=== PATIENT | male | born 1970 | race Caucasian/White ===

== ENCOUNTER 2016-11-21 11:19 | Inpatient (IN) | payer MEDICARE, OTHER ==
--- NOTE | 2016-11-21 11:42 | ED ---
Lower Extremity Injury HPI - General Chief Complaint: Extremity Injury, Lower Stated Complaint: Right foot pain Time Seen by Provider: 11/21/16 11:25 Source: patient, EMS, RN notes reviewed Mode of arrival: EMS Limitations: no limitations - History of Present Illness Initial Comments: This a 46-year-old male presents emergency Department with chief complaint of right foot and leg pain. Patient states that he is not exactly sure how he injured as he has no short-term memory. He believes he injured one week ago a tripped over something in his apartment. Patient has noticed some bruising to his lower leg and severe ankle, foot pain. Patient states she also noticed some blisters to his knee per believes is from. Patient denies any headache, dizziness, chest pain, shortness breath, nausea vomiting. Patient denies any upper extremity injuries. - Related Data Home Medications Medication Instructions Recorded Confirmed Citalopram Hydrobromide 40 mg PO DAILY 11/21/16 11/21/16 Multivitamins, Thera [Multivitamin 1 tab PO DAILY 11/21/16 11/21/16 (formulary)] Previous Rx's Medication Instructions Recorded Divalproex ER [Depakote ER] 1,500 mg PO HS 15 Days 02/06/15 Allergies Allergy/AdvReac Type Severity Reaction Status Date / Time No Known Allergies Allergy Verified 11/21/16 12:09 Review of Systems ROS Statement: Those systems with pertinent positive or pertinent negative responses have been documented in the HPI. ROS Other: All systems not noted in ROS Statement are negative. Past Medical History Past Medical History: Dementia, GERD/Reflux, Memory Impairment Additional Past Medical History / Comment(s): has past history of anemia. History of Any Multi-Drug Resistant Organisms: None Reported Past Surgical History: No Surgical Hx Reported Past Anesthesia/Blood Transfusion Reactions: No Reported Reaction Past Psychological History: ADD/ADHD, Anxiety, Bipolar, Depression Smoking Status: Light tobacco smoker Past Alcohol Use History: Occasional Past Drug Use History: None Reported General Exam Limitations: no limitations General appearance: alert, in no apparent distress Head exam: Present: atraumatic, normocephalic, normal inspection Neck exam: Present: normal inspection, full ROM. Absent: tenderness, meningismus, lymphadenopathy Respiratory exam: Present: normal lung sounds bilaterally. Absent: respiratory distress, wheezes, rales, rhonchi, stridor Cardiovascular Exam: Present: regular rate, normal rhythm, normal heart sounds. Absent: systolic murmur, diastolic murmur, rubs, gallop, clicks Extremities exam: Present: other (Right lower extremity there is ecchymosis noted proximal to the ankle and of the ankle itself there is moderate swelling with severe tenderness diffusely there is some proximal tib-fib tenderness and some foot tenderness noted. Patient's pedal pulses are equal bilaterally.) Back exam: Present: full ROM. Absent: tenderness Neurological exam: Present: alert Skin exam: Present: warm, dry, intact, normal color. Absent: rash Course Vital Signs 11/21/16 11:25 Temperature 98.5 F Pulse Rate 101 H Respiratory 16 Rate Blood Pressure 119/75 O2 Sat by Pulse 94 L Oximetry Medical Decision Making - Medical Decision Making Case discussed with Cr jackson patient be admitted at this time under Dr. Saleh for surgery tomorrow. Patient will need medical clearance. Disposition Clinical Impression: Tibia/fibula fracture Disposition: ADMITTED IP TO THIS [facility] Condition: Stable Referrals: Nonstaff,Physician [REFERRING] - 1-2 days
--- NOTE | 2016-11-21 12:33 | XR ---
EXAMINATION TYPE: XR tibia fibula 2 views RT, XR foot limited 2 views RT DATE OF EXAM: 11/21/2016 11:58 AM COMPARISON: NONE HISTORY: 46-year-old male with pain and swelling after fall yesterday FINDINGS: Right tibia/fibula: There is an oblique fracture of the distal tibial shaft with lateral displacement of half a shaft wid th, slight posterior displacement, and mild lateral apex angulation. Additional mildly displaced obli que fracture at the fibular neck. Foot: There is a large plantar calcaneal spur. No additional acute fracture seen on these 2 views. IMPRESSION: 1. Right tibia/fibula: Oblique fracture distal tibial shaft displaced by half a shaft's width. Additi onal mildly displaced oblique fracture of the fibular neck. 2. Foot: Large plantar calcaneal spur without additional acute fracture seen.
[2016-11-21] MEDS ORDERED: NALOXONE 0.4 MG/ML 1 ML VIAL IV PRN (13:16)
[2016-11-21] MEDS ORDERED: ACETAMINOPHEN TAB 325 MG TAB PO PRN (13:16)
[2016-11-21] MEDS ORDERED: ONDANSETRON 4 MG/2 ML VIAL IVP PRN (13:16)
[2016-11-21] MEDS ORDERED: HYDROcodone/APAP 5-325MG 1 EACH TAB PO PRN (13:16)
[2016-11-21] MEDS: MORPHINE SULFATE 4 MG/ML SYRINGE IV PRN ×2 (13:53→23:04)
[2016-11-21 14:07] LABS: Basophils % (A) 0 %; CH 32.3; CHCM 34.1; Eosinophils % (A) 0 %; HCT 42.8 % (39.0-53.0); HDW 2.17; HGB 14.4 gm/dL (13.0-17.5); Luc # (Auto) 0.16; Luc % (Auto) 1; Lymphocytes # (A) 1.5 k/uL (1.0-4.8); Lymphocytes % (A) 13 %; MCHC 33.6 g/dL (31.0-37.0); MCV 95.2 fL (80.0-100.0); Mean Platelet Volume 7.7; Monocytes % (A) 9 %; Neutrophils # (A) 8.7 k/uL (1.3-7.7); Neutrophils % (A) 76 %; WBC 11.5 k/uL (3.8-10.6)
[2016-11-21 14:15] LABS: INR 1.1 (<1.1); Partial Thromboplastin Time 23.7 sec (22.0-30.0); Prothrombin Time 11.1 sec (9.0-12.0)
[2016-11-21 14:19] LABS: ALT 22 U/L (21-72); AST 42 U/L (17-59); Alkaline Phosphatase 47 U/L (38-126); Anion Gap 14 mmol/L; Blood Urea Nitrogen 22 mg/dL (9-20); Calcium 9.9 mg/dL (8.4-10.2); Carbon Dioxide 23 mmol/L (22-30); Chloride 105 mmol/L (98-107); Glucose 134 mg/dL (74-99); Non-African American GFR(MDRD) >60 (>60 ml/min/1.73 sqM); Potassium 4.2 mmol/L (3.5-5.1); Sodium 142 mmol/L (137-145); Total Bilirubin 1.1 mg/dL (0.2-1.3)
--- NOTE | 2016-11-21 16:43 | P.HPOR ---
History of Present Illness H&P Date: 11/21/16 Chief Complaint: Right leg pain Patient is a 46-year-old male admitted through the Emergency Department where xrays showed a displaced distal tibia fracture and proximal fibula fracture. Patient states that he is not exactly sure how he injured and has difficulty with short-term memory. He believes he injured it one week ago. He states he is from [place] and here visiting friends. He ambulates regularly. Patient has noticed some bruising to his lower leg and severe ankle, foot pain. Patient states he also noticed some blisters to his knee the past few days. Patient denies any fever, chills, headache, dizziness, chest pain, shortness breath, nausea, vomiting, numbness, tingling, calf pain or other. Review of Systems All systems: negative Constitutional: Denies chills, Denies fever Eyes: denies blurred vision, denies pain Ears, nose, mouth and throat: Denies headache, Denies sore throat Cardiovascular: Denies chest pain, Denies shortness of breath Respiratory: Denies cough Gastrointestinal: Denies abdominal pain, Denies diarrhea, Denies nausea, Denies vomiting Musculoskeletal: Denies myalgias Integumentary: Denies pruritus, Denies rash Neurological: Denies numbness, Denies weakness Psychiatric: Denies anxiety, Denies depression Endocrine: Denies fatigue, Denies weight change Past Medical History Past Medical History: Dementia, GERD/Reflux, Memory Impairment Additional Past Medical History / Comment(s): has past history of anemia. History of Any Multi-Drug Resistant Organisms: None Reported Past Surgical History: No Surgical Hx Reported Past Anesthesia/Blood Transfusion Reactions: No Reported Reaction Past Psychological History: ADD/ADHD, Anxiety, Bipolar, Depression Smoking Status: Light tobacco smoker Past Alcohol Use History: Occasional Past Drug Use History: None Reported Medications and Allergies Home Medications Medication Instructions Recorded Confirmed Type Citalopram Hydrobromide 40 mg PO DAILY 11/21/16 11/21/16 History Multivitamins, Thera [Multivitamin 1 tab PO DAILY 11/21/16 11/21/16 History (formulary)] Allergies Allergy/AdvReac Type Severity Reaction Status Date / Time No Known Allergies Allergy Verified 11/21/16 12:09 Physical Examination Inspection of right lower extremity reveals two small benign blisters at the patella. There is do diffuse erythema or signs of infection. The knee and leg are not hot to touch. There are no open wounds. There is diffuse mod edema at lower leg and ankle with echymosis. There is a posterior lower leg splint in place. Calf is soft and nontender. The knee has painless PROM. Ankle ROM not tested. 2 + Dorsalis pedis pulse present and less than 2 sec cap refill. Results - Labs Labs: Abnormal Lab Results - Last 24 Hours (Table) 11/21/16 11/21/16 Range/Units 13:50 13:50 WBC 11.5 H (3.8-10.6) k/uL Neutrophils # 8.7 H (1.3-7.7) k/uL BUN 22 H (9-20) mg/dL Glucose 134 H (74-99) mg/dL H & H 11/21/16 Range/Units 13:50 Hgb 14.4 (13.0-17.5) gm/dL Hct 42.8 (39.0-53.0) % Coagulation 11/21/16 Range/Units 13:50 INR 1.1 (<1.1) Result Diagrams: 11/21/16 13:50 11/21/16 13:50 - Diagnostic results Knee x-ray: report reviewed, image reviewed Ankle/Foot x-ray: report reviewed, image reviewed (displaced distal tibia fracture, proximal fibula fracture) Assessment and Plan (1) Tibia/fibula fracture Narrative/Plan: This patient has been reviewed with Dr. Jonathan Saleh. He has recommended proceeding with surgical intervention including insertion of intramedullary alejandrina of the tibia. The procedure and consent has been scheduled. He is NPO after MN. Preop clearance has been requested. The surgery, possible risks, complications and benefits have been reviewed with the patient. The plan is to proceed with surgery tomorrow, November 22, 2016 at 07:30 am. Status: Acute Time with Patient: Less than 30
--- NOTE | 2016-11-21 17:34 | XR ---
EXAMINATION TYPE: XR chest 1V DATE OF EXAM: 11/21/2016 5:24 PM COMPARISON: NONE INDICATION: Presurgical clearance TECHNIQUE: Single frontal view of the chest is obtained. FINDINGS: The heart size is normal. The pulmonary vasculature is normal. The lungs are clear. IMPRESSION: 1. No acute pulmonary process.
--- NOTE | 2016-11-21 17:36 | XR ---
EXAMINATION TYPE: XR knee complete RT DATE OF EXAM: 11/21/2016 5:24 PM COMPARISON: NONE HISTORY: Fracture tib-fib blisters at patella TECHNIQUE: 4 view right knee FINDINGS: There is a little oblique fracture of the proximal fibular head and diaphysis. Fiberglas sp lint is present. Small joint effusion may be present. Patellofemoral joint space is normal. Medial and lateral compart ments appear normal. No additional fractures are evident. IMPRESSION: 1. Oblique fracture proximal right fibula
[2016-11-21] MEDS: DEXTROSE 5%-0.9% NACL 1,000 ML IV SCH (21:20)
[2016-11-21 22:46] LABS: Appearance,Urine Clear (Clear); Bilirubin,Urine Negative (Negative); Glucose,Urine (UA) 2+ (Negative); Ketones,Urine 1+ (Negative); Leukocyte Esterase,Urine Negative (Negative); Mucus,Urine Moderate /hpf; Nitrite,Urine Negative (Negative); PH, Urine 6.5 (5.0-8.0); Particle Count 6852; Protein,Urine 1+ (Negative); RBC,Urine 1 /hpf (0-5); UA Billing (MACRO vs. MICRO) MICRO; WBC,Urine 2 /hpf (0-5)
[2016-11-22] MEDS: MORPHINE SULFATE 4 MG/ML SYRINGE IV PRN (04:45)
[2016-11-22] MEDS: DEXTROSE 5%-0.9% NACL 1,000 ML IV SCH ×2 (04:45→14:28)
[2016-11-22] MEDS ORDERED: ceFAZolin 2 GM in SODIUM CHLORIDE 0.9% 100 ML IVPB ONE (06:58)
[2016-11-22] MEDS ORDERED: MORPHINE SULFATE (PF) 0.3 MG/0.3 ML SYR ONE (07:28)
[2016-11-22] MEDS ORDERED: fentaNYL (PF) 50 MCG/ML 2 ML AMP ONE (07:28)
[2016-11-22] MEDS ORDERED: PROPOFOL 10 MG/ML 20 ML VIAL IV ONE (07:28)
[2016-11-22] MEDS ORDERED: MIDAZOLAM 2 MG/2 ML VIAL ONE (07:28)
[2016-11-22] MEDS ORDERED: LACTATED RINGERS 1,000 ML IV ONE (07:30)
[2016-11-22] MEDS ORDERED: NALBUPHINE 10 MG/ML AMPUL IV PRN (07:45)
[2016-11-22] MEDS ORDERED: NALOXONE 0.4 MG/ML 1 ML VIAL IV PRN (07:45)
[2016-11-22] MEDS ORDERED: MORPHINE SULFATE 4 MG/ML SYRINGE IVP PRN (07:45)
[2016-11-22] MEDS ORDERED: KETOROLAC 30 MG/ML 1 ML VIAL IVP PRN (07:45)
[2016-11-22] MEDS ORDERED: diphenhydrAMINE 50 MG/ML 1 ML VIAL IVP PRN (07:45)
[2016-11-22] MEDS ORDERED: ceFAZolin 3,000 MG in SODIUM CHLORIDE 0.9% IRRIGATIO 3,000 ML IRRIGATION ONE (08:06)
--- NOTE | 2016-11-22 09:50 | P.OP ---
Date of Procedure: 11/22/16 Preoperative Diagnosis: Closed fracture proximal fibula and mid shaft tibia right Postoperative Diagnosis: Closed fracture proximal fibula and mid shaft tibia right Procedure(s) Performed: Closed reduction and intramedullary rodding of the right tibia Implants: Shreyas natural nail size 12 mm x 36 cm 2 proximal, and 2 distal locking screws Anesthesia: spinal Surgeon: Jonathan Saleh Sleep Lab Technologist #1: Cr Ambriz Estimated Blood Loss (ml): 150 Pathology: none sent Condition: stable Disposition: PACU Indications for Procedure: This is a 46-year-old male who sustained an injury to his right lower leg some time in the last week. 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 The patient has displaced midshaft right tibia fracture and a proximal fibula fracture. After discussing the injury and treatment options with the caregiver and legal guardian, they have signed consent for a close reduction and intramedullary rodding of the right tibia. Operative Findings: The operative findings are consistent with a midshaft displaced spiral fracture of the right tibia and a minimally displaced fracture of the right proximal fibula. He was also noted there was fracture blisters about the anterior aspect of the knee. There is also a dusky area of skin on the anterior medial aspect of the distal right tibia over the fracture site. This area is concern for possible skin breakdown. This was discussed postoperatively with the caregiver. Description of Procedure: The patient was seen and evaluated in the preoperative area. The consent was reviewed and the operative site was marked with a skin marker. Patient was then brought to the operating room and given 2 g of Ancef by anesthesia. A spinal anesthetic was then performed by the anesthesia department. Tourniquet was then placed on the right upper thigh and the right lower extremities and prepped and draped in usual sterile fashion. A universal timeout was then performed which confirmed the patient's name, surgical site, ALLERGIES, and consent. On inspection of the patient's skin prior to beginning the procedure, was noted there were fracture blisters over the anterior aspect of the right knee as well as a large dusky area over the anterior medial aspect of the distal tibia just over the fracture site. There is no evidence of any open areas. The procedure began by using fluoroscopy to perform a close reduction of the tibia fracture. This reduction was then held percutaneously with pointed reduction clamps. Next the starting point of the alejandrina was located just medial to the tibial tubercle. A skin incision was made and carried down to the patellar tendon. The patellar tendon was then opened medially to expose the insertion point of the alejandrina. Knee joint was not entered. A curved awl was then used to create the starting point of the alejandrina and this was confirmed with fluoroscopy. A ball-tipped guidewire was then inserted in the insertion site and passed distally past the fracture site into the distal fragment. This was confirmed with both AP and lateral fluoroscopic x-rays. Next, sequential reaming of the tibial canal was then performed with flexible reamers to 1-1/2 mm over the size of the alejandrina. After reaming was finished, the guidewire was then measured to pick the correct length for the alejandrina. The alejandrina was then inserted over the guidewire to the appropriate depth, and the guidewire was then removed. The fracture as well as the placement of the alejandrina was then confirmed with both AP and lateral fluoroscopic views. Next, 2 proximal locking screws then placed using the targeting guide. Next, 2 distal locking screws were then placed using a freehand technique with fluoroscopy. After all the screws been placed, and the targeting guide removed , final fluoroscopic x-rays confirmed reduction of the fracture as well as excellent placement of the alejandrina and screws. The wounds were then irrigated with antibiotic solution. Patellar tendon was closed with #1 Vicryl, followed by 2- 0 Vicryl and he for the skin. The rest of the small stab incisions for the screws were closed with 2-0 Vicryl and he for the skin. Sterile dressings were then applied and a well-padded and molded posterior splint was placed. The patient was then transferred to the recovery room in stable condition. The research assistant professor KRISTIN Theodore was required due the complexity of the surgery and the need for skilled operating room surgical technician.
[2016-11-22] MEDS ORDERED: MAGNESIUM HYDROXIDE 2,400 MG/10 ML CUP PO PRN (09:55)
--- NOTE | 2016-11-22 10:51 | XR ---
EXAMINATION TYPE: XR tibia fibula RT DATE OF EXAM: 11/22/2016 10:42 AM COMPARISON: 11/21/2016 HISTORY: 46-year-old male assess hardware alignment postop TECHNIQUE: 2 views FINDINGS: Overlying plaster splint obscures fine osseous detail. There is been interval antegrade intramedullar y nail across the oblique distal tibial shaft fracture. Alignment is significantly improved. There ar e 2 proximal and 2 distal interlocking screws. Surgical skin he are noted both proximally and di stally. Minimally displaced oblique fracture at the fibular neck. IMPRESSION: Intramedullary nailing across the patient's oblique distal tibial fracture with improved alignment. M inimally displaced oblique fracture of the fibular neck.
[2016-11-22 11:00] LABS: Basophils % (A) 0 %; CHCM 33.7; Eosinophils # (A) 0.1 k/uL (0-0.7); Eosinophils % (A) 1 %; HCT 36.5 % (39.0-53.0); HDW 2.28; HGB 12.6 gm/dL (13.0-17.5); Luc # (Auto) 0.26; Luc % (Auto) 3; Lymphocytes # (A) 3.1 k/uL (1.0-4.8); Lymphocytes % (A) 29 %; MCH 32.9 pg (25.0-35.0); MCHC 34.4 g/dL (31.0-37.0); MCV 95.6 fL (80.0-100.0); Mean Platelet Volume 7.7; Monocytes % (A) 10 %; Neutrophils % (A) 58 %; RBC 3.81 m/uL (4.30-5.90); RDW 12.5 % (11.5-15.5); WBC 10.5 k/uL (3.8-10.6); WBC (Perox) 9.81
--- NOTE | 2016-11-22 12:34 | FL ---
EXAMINATION TYPE: FL guidance operating room, XR tibia fibula 2 views RT DATE OF EXAM: 11/22/2016 9:51 AM COMPARISON: NONE HISTORY: 46-year-old male carotid insertion in OR FINDINGS: Images show placement of antegrade intramedullary nail with 2 proximal and 2 distal interlocking scre ws across the oblique fracture of the distal tibial shaft. Minimally displaced fracture of the proxim al fibula also noted. FLUOROSCOPY Fluoroscopy time of 4 minutes 51 seconds was used during intramedullary nail placement. 4 image/s do cument/s the procedure. IMPRESSION: Internal fixation right tibial fracture as above.
[2016-11-22] MEDS: LACTATED RINGERS 1,000 ML IV SCH ×2 (12:36→20:04)
[2016-11-22] MEDS: traMADol 50 MG TAB PO PRN ×2 (12:47→22:59)
[2016-11-22] MEDS: ceFAZolin 2 GM in SODIUM CHLORIDE 0.9% 100 ML IVPB SCH ×2 (15:01→22:59)
[2016-11-22] MEDS ORDERED: WARFARIN 5 MG TAB PO ONE (18:00)
--- NOTE | 2016-11-22 18:16 | CONS ---
DATE OF CONSULTATION: 11/22/2016 REASON FOR CONSULTATION: Management of chronic medical problems and preop clearance. HISTORY OF PRESENT ILLNESS: Mr. 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 Patient is not exactly sure how he injured it, as he has short-term memory loss. He believes that he had an injury 2 week ago when he tripped over something in his apartment. Patient was noticed to have some blisters on his knees and I was told that the patient did have bedbugs at the time of admission and he was given a bath. Patient has short-term memory loss. He cannot give me a good history, so most of the history is obtained from the HPI and Nursing, from the ER notes and nursing staff report. REVIEW OF SYSTEMS: Cannot be done, as the patient has memory issues and he cannot give me a good history. PAST MEDICAL HISTORY: Positive for dementia, GERD and seizure disorder. PAST SURGICAL HISTORY: None. SOCIAL HISTORY: Positive for anxiety, bipolar disorder and smoking on and off. No alcohol use. FAMILY HISTORY: Unable to obtain. ALLERGIES: No known drug allergies. Patient's home medications: 1. He is on Depakote ER 500 mg tablet. 2. ( ) q.h.s. every day. 3. Multivitamin 1 tablet p.o. daily. 4. Citalopram 40 mg p.o. daily. We were initially consulted for preop clearance, but the patient did have surgery done this morning, which was uneventful and he is currently transferred to the general medical floor for further management. On examination, patient's vitals: Temperature 97.2, heart rate 73, respiratory rate 16, blood pressure 127/93, saturating at 98% on room air. GENERAL: Patient does not appear to be in any acute distress. He is lying in his bed comfortably. HEAD: Atraumatic, normocephalic. EYES: Pupils, round, reactive to light. NECK: No JVD. No thyromegaly. CARDIOVASCULAR: S1 and S2 heard. No murmurs or extra sounds. LUNGS: Bilateral breath sounds are positive. No wheeze or crackles. ABDOMEN: Soft, nontender. No organomegaly. Bowel sounds are positive. EXTREMITIES: The right lower extremity is wrapped in an Kedar bandage. He just had the surgery done for his fractured fibula and tibia. [employer] SALES ENGINEER: Alert, awake, oriented x1. He knows his name and date of , but not sure which place he is and he says he thinks he is in [place]. Patient's labs: White count of 10.5, hemoglobin is 12.6, platelets of 194. Sodium 142, potassium 4.2, chloride 105, bicarb 23, BUN 22, creatinine 0.78. UA is clean. The patient also had an x-ray of the right lower extremity, showing oblique fracture at the distal tibia shaft displaced by half along with oblique fracture of the fibular neck. ASSESSMENT AND PLAN: 1. Tibia and fibula fracture on the right side 2. 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 3. History of seizures. 4. History of bipolar disorder. 5. History of anxiety and depression. PLAN: The plan is that patient did have the surgery done this morning and to continue with his home medications and GI, DVT prophylaxis as per primary care team management. Will follow the patient on as-needed basis. Thank you for the consult.
[2016-11-22] MEDS: SENNOSIDES-DOCUSATE SODIUM 1 EACH TAB PO SCH (20:03)
[2016-11-23] MEDS: LACTATED RINGERS 1,000 ML IV SCH ×2 (05:14→16:39)
[2016-11-23] MEDS: ceFAZolin 2 GM in SODIUM CHLORIDE 0.9% 100 ML IVPB SCH ×3 (08:07→23:06)
[2016-11-23 08:34] LABS: INR 1.3 (<1.1); Prothrombin Time 13.1 sec (9.0-12.0)
--- NOTE | 2016-11-23 09:24 | P.PN ---
Subjective Principal diagnosis: Status post IM alejandrina right tibia Patient is a 46-year-old male seen at bedside swallowing. He is postop day #1 from IM alejandrina insertion for right tib-fib fracture. He has pain at the surgical site as expected but denies any new complaints. He is denying calf pain. He denies numbness or tingling. Review of systems is negative for fever, chills, chest pain or shortness of breath. Objective - Vital Signs Vital signs: Vital Signs Temp 100.9 F H 11/23/16 07:43 Pulse 104 H 11/23/16 07:43 Resp 20 11/23/16 08:00 BP 98/59 11/23/16 07:43 Pulse Ox 94 L 11/23/16 07:43 Intake & Output 11/22/16 11/23/16 11/23/16 18:59 06:59 18:59 Intake Total 901 1290 Output Total 350 800 Balance 551 490 Intake: IV 901 Oral 1290 Output: Urine 200 800 Estimated Blood Loss 150 Other: Voiding Method Urinal Urinal Urinal - Exam General he is in no apparent distress. Right lower extremity: Posterior splint and Kedar bandage intact. There is evidence of mild drainage at the distal medial aspect of the right lower extremity. The drainage is serosanguineous in nature. Motor and sensation are intact at the knee and toes. There is less than 2 second cap refill distally. - Constitutional General appearance: Present: no acute distress - Psychiatric Psychiatric: Present: A&O x's 3, appropriate affect, intact judgment & insight - Labs CBC & Chem 7: 11/22/16 10:28 11/21/16 13:50 Labs: Abnormal Lab Results - Last 24 Hours (Table) 11/22/16 11/23/16 Range/Units 10:28 07:55 RBC 3.81 L (4.30-5.90) m/uL Hgb 12.6 L (13.0-17.5) gm/dL Hct 36.5 L (39.0-53.0) % PT 13.1 H (9.0-12.0) sec Assessment and Plan (1) Tibia/fibula fracture Narrative/Plan: He will continue with routine postop orthopedic protocol including pain management with tramadol and Toradol, wound care where the dressing will be reinforced today and will be taken down tomorrow, Emile, November 24, DVT prophylaxis where he is on Coumadin, elevate right lower extremity, and medical management. I restarted his Depakote per patient home med prescription and he will continue on IV cefazolin as well. Status: Acute Time with Patient: Less than 30
[2016-11-23] MEDS: KETOROLAC 30 MG/ML 1 ML VIAL IVP PRN ×2 (10:00→16:37)
[2016-11-23] MEDS: DIVALPROEX ER 500 MG TAB.ER.24H PO SCH (10:00)
[2016-11-23] MEDS: MULTIVITAMINS, THERA 1 EACH TAB PO SCH (11:39)
[2016-11-23] MEDS ORDERED: WARFARIN 7.5 MG TAB PO ONE (18:00)
[2016-11-23] MEDS: SENNOSIDES-DOCUSATE SODIUM 1 EACH TAB PO SCH (20:02)
[2016-11-24] MEDS: LACTATED RINGERS 1,000 ML IV SCH ×2 (01:18→12:41)
--- NOTE | 2016-11-24 06:22 | P.PN ---
Progress Note - Text Postoperative day 1 status post , IM roding right tibia under spinal anesthesia, and intrathecal morphine given for postoperative analgesia, patient doing well, there is no anesthesia related complications, further management as per her primary team
[2016-11-24 09:14] LABS: INR 3.1 (<1.1); Prothrombin Time 30.2 sec (9.0-12.0)
[2016-11-24 09:29] VITALS: BMI 25.7
[2016-11-24] MEDS ORDERED: NEOMYCIN-BACITRACIN-POLY OINT 14 GM TUBE TOPICAL PRN (09:40)
[2016-11-24 09:55] LABS: Basophils % (A) 0 %; CH 32.1; CHCM 33.3; Eosinophils % (A) 0 %; HCT 27.9 % (39.0-53.0); Luc # (Auto) 0.17; Luc % (Auto) 2; Lymphocytes # (A) 1.7 k/uL (1.0-4.8); Lymphocytes % (A) 19 %; MCH 32.4 pg (25.0-35.0); MCHC 33.4 g/dL (31.0-37.0); Mean Platelet Volume 8.2; Monocytes # (A) 0.6 k/uL (0-1.0); Monocytes % (A) 7 %; Neutrophils # (A) 6.4 k/uL (1.3-7.7); Neutrophils % (A) 72 %; RBC 2.88 m/uL (4.30-5.90); RDW 13.2 % (11.5-15.5); WBC 8.8 k/uL (3.8-10.6); WBC (Perox) 9.49
--- NOTE | 2016-11-24 10:07 | P.PN ---
Subjective Principal diagnosis: Status post IM alejandrina right tibia Patient is a 46-year-old male seen at bedside this morning. He is postop day # 2 from IM alejandrina insertion for right tib-fib fracture. He has pain at the surgical site as expected but denies any new complaints. He is denying calf pain. He denies numbness or tingling. Review of systems is negative for fever , chills, chest pain or shortness of breath. Objective - Vital Signs Vital signs: Vital Signs Temp 100.2 F H 11/24/16 07:00 Pulse 102 H 11/24/16 07:00 Resp 16 11/24/16 07:00 BP 109/64 11/24/16 07:00 Pulse Ox 98 11/24/16 07:00 Intake & Output 11/23/16 11/24/16 11/24/16 18:59 06:59 18:59 Output Total 2650 2700 Balance -2650 -2700 Weight 86.183 kg Output: Urine 2650 2700 Other: Voiding Method Urinal Urinal # Voids 2 # Bowel Movements 2 - Exam General he is in no apparent distress. Right lower extremity: Posterior splint and Kedar bandage was removed. Wounds are benign with minimal signs of bleeding. There are benign appearing blisters. Motor and sensation are intact at the knee and toes. There is less than 2 second cap refill distally. The wounds were redressed with sterile bandages and antibiotic ointment. The leg was then rewrapped in a very well padded posterior splint. - Constitutional General appearance: Present: no acute distress - Labs CBC & Chem 7: 11/22/16 10:28 11/21/16 13:50 Labs: Abnormal Lab Results - Last 24 Hours (Table) 11/21/16 11/24/16 Range/Units 22:00 07:59 PT 30.2 H (9.0-12.0) sec Urine Opiates Screen Positive H (Negative) ng/mL Assessment and Plan (1) Tibia/fibula fracture Narrative/Plan: He will continue with routine postop orthopedic protocol including pain management with tramadol and Toradol, wound care where the dressing and bandages were changed today, DVT prophylaxis where he is on Coumadin, elevate right lower extremity, and medical management. We will D/C IV ancef and transition to keflex 500 mg QID. He will need arrangement for d/c planning, possible ECF placement. Status: Acute Time with Patient: Less than 30
[2016-11-24] MEDS: DIVALPROEX ER 500 MG TAB.ER.24H PO SCH (10:13)
[2016-11-24 10:23] LABS: HGB 9.3 gm/dL (13.0-17.5)
[2016-11-24] MEDS ORDERED: HYDROcodone/APAP 5-325MG 1 EACH TAB PO PRN (10:35)
[2016-11-24] MEDS: ceFAZolin 2 GM in SODIUM CHLORIDE 0.9% 100 ML IVPB SCH (10:38)
[2016-11-24] MEDS: MULTIVITAMINS, THERA 1 EACH TAB PO SCH (12:41)
[2016-11-24] MEDS: CEPHALEXIN 500 MG CAP PO SCH ×3 (13:26→21:12)
[2016-11-24] MEDS: SENNOSIDES-DOCUSATE SODIUM 1 EACH TAB PO SCH (21:12)
[2016-11-24] MEDS: HYDROcodone/APAP 5-325MG 1 EACH TAB PO PRN (21:12)
[2016-11-25 08:33] LABS: Prothrombin Time 39.1 sec (9.0-12.0)
[2016-11-25] MEDS: HYDROcodone/APAP 5-325MG 1 EACH TAB PO PRN ×2 (08:37→20:58)
[2016-11-25] MEDS: CEPHALEXIN 500 MG CAP PO SCH ×4 (08:37→20:57)
--- NOTE | 2016-11-25 08:37 | PN ---
DATE OF SERVICE: 11/24/2016 This 46-year-old gentleman who was admitted with fracture on the right side, also had history of dementia due to traumatic injury in the past. Orthopedics surgery is following the patient closely. No chest pain, no palpitations. The patient running mild fever. REVIEW OF SYSTEMS: CARDIOVASCULAR: No angina or palpitations. RESPIRATORY: As mentioned earlier. GASTROINTESTINAL: As mentioned earlier. : No dysuria. CENTRAL NERVOUS SYSTEM: No numbness, weakness. On exam alert and oriented times three. Pulse is 106, blood pressure 105/54, respiratory rate 20, temperature 99.9, pulse ox 97% on room air. HEENT: Conjunctivae normal. NECK: No jugular venous distention. CARDIOVASCULAR: S1, S2 normal. RESPIRATORY: Breath sounds diminished at the bases. A few scattered crackles. ABDOMEN: Soft. Nontender. No mass palpable. Legs: No edema, no swelling. Nervous system: Higher functions as mentioned earlier. Moves all four limbs. No focal deficits. SKIN: No ulcer, rash or bleeding. Examination of the right leg status post fracture. Current medications are reviewed and include: 1. Tylenol 650 q.6 p.r.n. 2. [place] 5 mg q.6h. p.r.n. 3. Keflex 500 mg t.i.d. 4. Depakote. 5. Toradol. 6. Milk of magnesia. 7. Multivitamins. 8. Narcan. 9. Triple Antibiotics. 10. Zofran. 11. Senokot. ASSESSMENT: 1. Status post fracture on the right side. 2. Continued fever, possibly atelectasis. 3. 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 4. History of seizures. 5. History of bipolar disorder. 6. History of anxiety, depression, not otherwise specified. 7. Increased WBC, improved. 8. Anemia, normocytic, possibly anemia of chronic disease. 9. Coumadin monitoring. 10. Increased random blood sugar. 11. Gait dysfunction. 12. History of gastroesophageal reflux disease. 13. History attention deficit hyperactivity disorder. 14. History of nicotine dependence. 15. History of ETOH. 16. FULL CODE. RECOMMENDATIONS AND DISCUSSION: In this 46 -year-old gentleman who presented with multiple complex medical issues, we will monitor the patient closely, continue patient's empiric antibiotic at this time. Reviewed the UA which is unremarkable. The patient also had chest x-ray on admission showed no acute process. We will continue to monitor and encourage incentive spirometry closely. DVT prophylaxis. Closely follow with orthopedic surgery. Further recommendations to follow. VLADIMIRD
[2016-11-25] MEDS: DIVALPROEX ER 500 MG TAB.ER.24H PO SCH (08:38)
--- NOTE | 2016-11-25 08:57 | P.PN ---
Subjective Principal diagnosis: right tibia fracture This is a 46-year-old gentleman who is status post IM rodding of his right tibia. Today's postoperative day #3. The patient is seen and evaluated at bedside. He states that his pain is under fair control. Denies numbness or tingling. No new complaints at this time. Objective - Vital Signs Vital signs: Vital Signs Temp 97.6 F 11/25/16 07:00 Pulse 107 H 11/25/16 07:00 Resp 18 11/25/16 07:00 BP 105/63 11/25/16 07:00 Pulse Ox 96 11/25/16 07:00 Intake & Output 11/24/16 11/25/16 11/25/16 18:59 06:59 18:59 Intake Total 460 Output Total 2200 700 Balance -1740 -700 Weight 86.183 kg Intake: Oral 460 Output: Urine 2200 700 Other: Voiding Method Urinal # Bowel Movements 2 - Exam Patient does not appear in acute distress. He is alert and answers questions appropriately. He has history of short-term memory loss. Short leg posterior splint is intact. There is no drainage present on the dressing today. He is able to wiggle his toes without much difficulty. Capillary refill is less than 2 seconds. Sensation is intact. Compartments appear soft. - Labs CBC & Chem 7: 11/24/16 07:59 11/21/16 13:50 Labs: Abnormal Lab Results - Last 24 Hours (Table) 11/24/16 11/24/16 11/25/16 Range/Units 07:59 07:59 07:51 RBC 2.88 L (4.30-5.90) m/uL Hgb 9.3 L D (13.0-17.5) gm/dL Hct 27.9 L (39.0-53.0) % PT 30.2 H 39.1 H (9.0-12.0) sec Assessment and Plan (1) Tibia/fibula fracture Status: Acute Plan: The patient will continue with routine postoperative care. We are planning for discharge to [facility]. Unfortunately, the patient was initially under observation and requires 3 day hospital stay at inpatient status. Subsequently the patient will likely be transferred tomorrow. I discussed the case with the case management. We'll continue with antibiotics.. Equalizer boot will be ordered. Patient will follow up in the office with Dr. Saleh in 10 days. Further recommendations forthcoming depending on patient's course.
[2016-11-25] MEDS: MULTIVITAMINS, THERA 1 EACH TAB PO SCH (12:29)
[2016-11-25] MEDS: SENNOSIDES-DOCUSATE SODIUM 1 EACH TAB PO SCH (20:56)
--- NOTE | 2016-11-25 22:26 | PN ---
DATE OF SERVICE: 11/25/2016 This 46-year-old gentleman admitted after fracture on the right lower leg, is being closely monitored. PT/OT evaluating the patient for possible ECF rehab. No chest pain or palpitations. No fever. On exam, alert and oriented x2. Pulse 107, blood pressure 105/66, respirations 18, temperature 97.6, pulse ox 97% on room air. HEENT: Conjunctivae normal. NECK: No jugular venous distension. CARDIOVASCULAR: S1 and S2 muffled. RESPIRATORY: Breath sounds diminished in the bases. No rhonchi. No crackles. ABDOMEN: Soft, nontender. LEGS: Status post fracture. NERVOUS SYSTEM: Unchanged. LABS: INR is 4 and hemoglobin is 9.3. ASSESSMENT: 1. Status post fracture of the right lower leg. 2. Continued fever, possible atelectasis. 3. Coumadin coagulopathy, mild. 4. Anemia, normocytic anemia of chronic disease. 5. History of dementia secondary to traumatic brain injury in the past. 6. History of seizure disorder. 7. History of bipolar disorder. 8. History of anxiety and depression, not otherwise specified. 9. Increased WBC, improved. 10. Coumadin monitoring. 11. Increased random blood sugar. 12. Gait dysfunction. 13. History of gastroesophageal reflux disease. 14. History of attention deficit hyperactivity disorder. 15. History of nicotine dependence. 16. History of EtOH. 17. FULL CODE. RECOMMENDATIONS AND DISCUSSION: I would recommend to continue current medications and symptomatic treatment. Otherwise, I would recommend to hold the Coumadin today and continue to monitor. Monitor PT, INR closely. Otherwise, PT/OT evaluation, closely follow with Orthopedic Surgery. Further recommendations to follow.
[2016-11-26 07:29] VITALS: BP 104/63; PULSE 96; RESP 22; TEMP 98
--- NOTE | 2016-11-26 08:18 | P.DS ---
Providers Date of admission: 11/23/16 11:27 Expected date of discharge: 11/26/16 Attending physician: Jonathan Saleh Consults: 11/21/16 13:16 Consult Physician Stat Consulting Provider: Noah Underwood Consult Reason/Comments: Medical clearance Do you want consulting provider notified?: Yes 11/22/16 09:55 Consult Physician Stat Consulting Provider: Krysta Hager Consult Reason/Comments: post op medical management Do you want consulting provider notified?: Yes Primary care physician: Diaz Sneed - Discharge Diagnosis(es) (1) Tibia/fibula fracture Current Visit: Yes Status: Acute Priority: Medium Hospital Course: This is a 46-year-old gentleman who presented to the emergency department after sustaining with right lower leg pain. X-rays revealed displaced distal tibia fracture and proximal fibula fracture. The patient apparently believes he injured the leg a week ago he has short-term memory loss. He was admitted to our service for surgical intervention. After discussion and consideration consent was obtained to proceed with IM rodding of the right tibia. The patient has done well postoperatively. He seen and evaluated at bedside today. His pain is under fair control. He has no new complaints at this time. Patient is somewhat of a poor historian. He is currently in a boot. Dressing is clean dry and intact. Compartments appear. He wiggles his toes freely without difficulty or much pain. Sensation is intact. Capillary refill is brisk. Pertinent Studies: Laboratory Tests 11/24/16 11/25/16 07:59 07:51 WBC 8.8 RBC 2.88 L Hgb 9.3 L D Hct 27.9 L MCV 97.0 PT 39.1 H INR 4.0 Patient Condition at Discharge: Stable Plan - Discharge Summary New Discharge Prescriptions: Cephalexin [Keflex] 500 mg PO Q6HR #40 cap Hydrocodone/Acetaminophen [[place] 5-325] 1 each PO Q6HR PRN #60 tab PRN Reason: Pain Sennosides-Docusate Sodium [Senokot-S] 2 tab PO DAILY #60 tablet Warfarin [Coumadin] 2.5 mg PO DAILY #27 tab Discharge Medication List Divalproex ER [Depakote ER] 1,500 mg PO HS 15 Days 02/06/15 [Rx] Citalopram Hydrobromide [Citalopram HBr] 40 mg PO DAILY 11/21/16 [History] Multivitamins, Thera [Multivitamin (formulary)] 1 tab PO DAILY 11/21/16 [History ] Cephalexin [Keflex] 500 mg PO Q6HR #40 cap 11/26/16 [Rx] Hydrocodone/Acetaminophen [[place] 5-325] 1 each PO Q6HR PRN #60 tab 11/26/16 [Rx] Sennosides-Docusate Sodium [Senokot-S] 2 tab PO DAILY #60 tablet 11/26/16 [Rx] Warfarin [Coumadin] 2.5 mg PO DAILY #27 tab 11/26/16 [Rx] Follow up Appointment(s)/Referral(s): [facility],Physician [REFERRING] - 1-2 days Jonathan Saleh DO [Doctor of Osteopathic Medicine] - 1 Week Patient Instructions/Handouts: ORIF of a Leg Fracture (DC) Activity/Diet/Wound Care/Special Instructions: Regular diet. Ryan and Filippis/Premium Equalizer Boot for Rt Lower extremity Nonweightbearing right lower extremity Maintain. Equalizer boot at all times. Remove boot for daily dressing changes. triple antibiotic ointment may be placed to area of blister Hold Coumadin for 3 days. Recheck PT/INR on 11/28/2016. Discharge Disposition: TRANSFER TO SNF/ECF
[2016-11-26] MEDS: DIVALPROEX ER 500 MG TAB.ER.24H PO SCH (08:32)
[2016-11-26] MEDS: CEPHALEXIN 500 MG CAP PO SCH ×2 (08:32→13:00)
[2016-11-26 09:56] LABS: INR 3.5 (<1.1); Prothrombin Time 34.1 sec (9.0-12.0)
[2016-11-26] MEDS ORDERED: PANTOPRAZOLE 40 MG TABLET PO SCH (12:30)
[2016-11-26] MEDS: MULTIVITAMINS, THERA 1 EACH TAB PO SCH (13:00)
[2016-11-26 13:25] LABS: Basophils % (A) 1 %; CH 31.7; Eosinophils # (A) 0.2 k/uL (0-0.7); Eosinophils % (A) 2 %; HDW 2.75; Luc # (Auto) 0.12; Luc % (Auto) 2; Lymphocytes # (A) 1.7 k/uL (1.0-4.8); Lymphocytes % (A) 20 %; MCH 33.3 pg (25.0-35.0); MCHC 33.4 g/dL (31.0-37.0); MCV 99.8 fL (80.0-100.0); Monocytes # (A) 0.5 k/uL (0-1.0); Monocytes % (A) 6 %; Neutrophils # (A) 5.7 k/uL (1.3-7.7); Neutrophils % (A) 70 %; RBC 3.01 m/uL (4.30-5.90); RDW 13.7 % (11.5-15.5); WBC 8.2 k/uL (3.8-10.6); WBC (Perox) 8.76
[2016-11-26 13:31] LABS: ALT 30 U/L (21-72); AST 33 U/L (17-59); Alkaline Phosphatase 45 U/L (38-126); Anion Gap 9 mmol/L; Blood Urea Nitrogen 15 mg/dL (9-20); Calcium 8.8 mg/dL (8.4-10.2); Carbon Dioxide 27 mmol/L (22-30); Chloride 101 mmol/L (98-107); Glucose 110 mg/dL (74-99); Non-African American GFR(MDRD) >60 (>60 ml/min/1.73 sqM); Potassium 4.2 mmol/L (3.5-5.1); Sodium 137 mmol/L (137-145)
--- NOTE | 2016-11-26 20:35 | PN ---
DATE OF SERVICE: 11/26/2016 This 46-year-old gentleman, admitted with fracture of the right leg, is being closely monitored at this time. The patient also has mild Coumadin coagulopathy. ECF rehab is being planned. No chest pain. No palpitation. No fever. On exam, alert and oriented x3. Pulse 96, blood pressure 104/63, respiration 22, temperature 98 degrees, pulse ox 95% on room air. HEENT: Conjunctivae normal. NECK: No jugular venous distention. CARDIOVASCULAR SYSTEM: S1, S2 muffled. RESPIRATORY SYSTEM: Breath sounds diminished at the bases. A few scattered rhonchi. No crackles. ABDOMEN: Soft, non-tender. No mass palpable. LEGS: No edema. No swelling. NERVOUS SYSTEM: No focal deficit. LABS: WBC 8.2, hemoglobin 10. INR is 3.5. Albumin is 3.1. ASSESSMENT: 1. Status post fracture of the right leg. 2. Coumadin coagulopathy, mild. 3. Continued fever; possible atelectasis. 4. Anemia, normocytic; anemia of chronic disease. 5. History of dementia secondary to traumatic brain injury in the past. 6. History of seizure disorder. 7. History of bipolar disorder. 8. History of anxiety, depression not otherwise specified. 9. Increased white count, improved. 10. Coumadin monitoring. 11. Increased random blood sugar. 12. Gait dysfunction. 13. History of gastroesophageal reflux disease. 14. History of attention deficit hyperactivity disorder. 15. History of nicotine dependence. 16. History of ethanol. 17. FULL CODE. RECOMMENDATIONS AND DISCUSSION: I recommend to continue with the current medications, continue with symptomatic treatment. Medication reconciliation was done. I recommend that the patient follow up with Dr. Yeager in the ECF. Otherwise, hold Coumadin and initiate Coumadin to keep the INR between 2 and 3. Further recommendations to follow.
== END 2016-11-26 13:10 | DRG 494 ==
LOC: EC 11:19 → 4MS4W 13:25 → OBSVTOIN 11-23 11:27
PROVIDERS: ADMIT Orthopaedic Surgery; ATTEND Orthopaedic Surgery
PROC: 0QSG36Z Reposition Right Tibia with Intramedullary Internal Fixation Device, Percutaneous Approach (ICD-10-PCS; principal; 2016-11-22 07:30)
DX: S82.231A Displaced oblique fracture of shaft of right tibia, initial encounter for closed fracture (principal); F02.80 Dementia in other diseases classified elsewhere, unspecified severity, without behavioral disturbance, psychotic disturbance, mood disturbance, and anxiety; S82.431A Displaced oblique fracture of shaft of right fibula, initial encounter for closed fracture; G40.909 Epilepsy, unspecified, not intractable, without status epilepticus; K21.9 Gastro-esophageal reflux disease without esophagitis; F90.9 Attention-deficit hyperactivity disorder, unspecified type; F31.9 Bipolar disorder, unspecified; F41.9 Anxiety disorder, unspecified; D63.8 Anemia in other chronic diseases classified elsewhere; F17.200 Nicotine dependence, unspecified, uncomplicated; R79.1 Abnormal coagulation profile; T45.515A Adverse effect of anticoagulants, initial encounter; R26.9 Unspecified abnormalities of gait and mobility; Z79.01 Long term (current) use of anticoagulants; Z79.899 Other long term (current) drug therapy; Z87.820 Personal history of traumatic brain injury; W01.0XXA Fall on same level from slipping, tripping and stumbling without subsequent striking against object, initial encounter; Y92.009 Unspecified place in unspecified non-institutional (private) residence as the place of occurrence of the external cause
CPT/HCPCS: 36415; 71010; 80053; 80306; 81001; 85025; 85610; 85730; 93005; 96374; 96375; 96376; 99285

== ENCOUNTER 2017-03-23 18:36 | Inpatient (IN) | payer MEDICARE, OTHER ==
[2017-03-23] MEDS ORDERED: SODIUM CHLORIDE 0.9% 1,000 ML IV STA (18:39)
[2017-03-23] MEDS ORDERED: SODIUM CHLORIDE 0.9% 500 ML IV STA (18:39)
[2017-03-23] MEDS ORDERED: PANTOPRAZOLE 40 MG/10 ML VIAL IVP STA (18:39)
--- NOTE | 2017-03-23 18:46 | ED ---
GI Bleed HPI - General Stated complaint: GI Bleed Time Seen by Provider: 03/23/17 18:36 Source: patient, EMS, RN notes reviewed, old records reviewed Mode of arrival: EMS - History of Present Illness Initial comments: This is a 46-year-old male with a history of alcoholism who is now a shelter resident he also has a history dementia who was found in a bathroom and his residence with a large amount of bright red blood that he had vomited. He also has been having black tarry stools for Torrie last day or so. EMS was called he was found be hypotensive with a blood pressure 83/59 he was given 300 mL fluid bolus he was tachycardic at 117. The patient himself is a poor historian. He denies any abdominal pain at this time he is not believe he has cirrhosis. MD complaint: gross hematemesis, melena - Related Data Home Medications Medication Instructions Recorded Confirmed Multivitamins, Thera [Multivitamin 1 tab PO DAILY 11/21/16 03/23/17 (formulary)] Hydrocodone/Acetaminophen [[place] 1 tab PO Q6HR PRN 03/23/17 03/23/17 5-325] Melatonin 10 mg PO HS 03/23/17 03/23/17 PARoxetine HCL [Paxil] 30 mg PO DAILY 03/23/17 03/23/17 Sennosides-Docusate Sodium 2 tab PO DAILY 03/23/17 03/23/17 [Senokot-S] Previous Rx's Medication Instructions Recorded Divalproex ER [Depakote ER] 1,500 mg PO HS 15 Days 02/06/15 Allergies Allergy/AdvReac Type Severity Reaction Status Date / Time No Known Allergies Allergy Verified 03/23/17 18:44 Review of Systems ROS Statement: Those systems with pertinent positive or pertinent negative responses have been documented in the HPI. ROS Other: All systems not noted in ROS Statement are negative. Limitations: ROS unobtainable due to patients medical condition Past Medical History Past Medical History: GERD/Reflux, Memory Impairment Additional Past Medical History / Comment(s): per [facility]- past history of anemia/ GERD/ DEMENTIA- UNABLE TO VERIFY WITH PT OR CAREGIVER YI. per with caregiver yi -hx agressive behavior,bipolar depression, anxiety, past etoh abuse. past od on pills/etoh and since has memory problems-no stm. caregiver stated pt is taking depakote but has no idea why. attempted to call legal guardian- no answer History of Any Multi-Drug Resistant Organisms: None Reported Past Surgical History: Tonsillectomy Past Anesthesia/Blood Transfusion Reactions: No Reported Reaction Smoking Status: Former smoker - Past Family History Father Family Medical History: Unable to Obtain Mother Family Medical History: Unable to Obtain General Exam - General Exam Comments Initial Comments: This is a well-developed well-nourished pale appearing male he currently is not actively vomiting Limitations: altered mental status General appearance: alert, in no apparent distress Head exam: Present: atraumatic, normocephalic, normal inspection Eye exam: Present: PERRL, EOMI, other (Pale conjunctiva) ENT exam: Present: other Neck exam: Present: normal inspection. Absent: tenderness, meningismus, lymphadenopathy Respiratory exam: Present: normal lung sounds bilaterally. Absent: respiratory distress, wheezes, rales, rhonchi, stridor Cardiovascular Exam: Present: normal rhythm, tachycardia GI/Abdominal exam: Present: soft Rectal exam: Present: heme (+) stool, black stool exam: Present: normal inspection Extremities exam: Present: normal inspection, full ROM, normal capillary refill. Absent: tenderness, pedal edema, joint swelling, calf tenderness Back exam: Present: normal inspection Neurological exam: Present: alert, altered, CN II-XII intact. Absent: motor sensory deficit Psychiatric exam: Present: flat affect Skin exam: Present: warm, dry, intact, pallor Course Vital Signs 03/23/17 03/23/17 03/23/17 18:43 19:05 19:46 Temperature 97.3 F L Pulse Rate 124 H 120 H 119 H Respiratory 20 20 18 Rate Blood Pressure 79/57 90/52 119/71 O2 Sat by Pulse 97 97 100 Oximetry 03/23/17 03/23/17 03/23/17 20:29 20:44 21:01 Temperature 97.6 F Pulse Rate 114 H 118 H 113 H Respiratory 18 18 18 Rate Blood Pressure 121/81 128/77 117/81 O2 Sat by Pulse 98 98 99 Oximetry - Reevaluation(s) Reevaluation #1: 03/23/17 20:41 The patient had no further vomiting he will be admitted he has had a significant blood loss recently. She will be consulted. Patient will be admitted to ICU. Reevaluation #2: 03/23/17 21:29 No further emesis. I did discuss the case with the admitting service of Dr. Real also discuss case with Dr. Arenas and with Dr. Rodriguez Medical Decision Making - Lab Data Result diagrams: 03/23/17 18:55 03/23/17 18:55 Lab Results 03/23/17 03/23/17 03/23/17 Range/Units 18:55 18:55 18:55 WBC (3.8-10.6) k/uL RBC (4.30-5.90) m/uL Hgb (13.0-17.5) gm/dL Hct (39.0-53.0) % MCV (80.0-100.0) fL MCH (25.0-35.0) pg MCHC (31.0-37.0) g/dL RDW (11.5-15.5) % Plt Count (150-450) k/uL Neutrophils % % Lymphocytes % % Monocytes % % Eosinophils % % Basophils % % Neutrophils # (1.3-7.7) k/uL Lymphocytes # (1.0-4.8) k/uL Monocytes # (0-1.0) k/uL Eosinophils # (0-0.7) k/uL Basophils # (0-0.2) k/uL PT 10.6 (9.0-12.0) sec INR 1.1 (<1.2) APTT 16.1 L (22.0-30.0) sec Sodium (137-145) mmol/L Potassium (3.5-5.1) mmol/L Chloride (98-107) mmol/L Carbon Dioxide (22-30) mmol/L Anion Gap mmol/L BUN (9-20) mg/dL Creatinine (0.66-1.25) mg/dL Est GFR (MDRD) Af Amer (>60 ml/min/1.73 sqM) Est GFR (MDRD) Non-Af (>60 ml/min/1.73 sqM) Glucose (74-99) mg/dL Calcium (8.4-10.2) mg/dL Magnesium (1.6-2.3) mg/dL Total Bilirubin (0.2-1.3) mg/dL AST (17-59) U/L ALT (21-72) U/L Alkaline Phosphatase (38-126) U/L Ammonia 31 H (<30) umol/L Total Creatine Kinase <20 L (55-170) U/L CK-MB (CK-2) 0.2 (0.0-2.4) ng/mL CK-MB (CK-2) Rel Index Troponin I <0.012 (0.000-0.034) ng/mL Total Protein (6.3-8.2) g/dL Albumin (3.5-5.0) g/dL Lipase (23-300) U/L Stool Occult Blood (Negative) Serum Alcohol mg/dL Blood Type Blood Type Recheck Antibody Screen Spec Expiration Date 03/23/17 03/23/17 03/23/17 Range/Units 18:55 18:55 18:55 WBC 13.9 H (3.8-10.6) k/uL RBC 3.43 L (4.30-5.90) m/uL Hgb 10.5 L D (13.0-17.5) gm/dL Hct 30.5 L (39.0-53.0) % MCV 89.1 (80.0-100.0) fL MCH 30.7 (25.0-35.0) pg MCHC 34.4 (31.0-37.0) g/dL RDW 14.8 (11.5-15.5) % Plt Count 236 (150-450) k/uL Neutrophils % 58 % Lymphocytes % 34 % Monocytes % 4 % Eosinophils % 2 % Basophils % 1 % Neutrophils # 8.1 H (1.3-7.7) k/uL Lymphocytes # 4.7 (1.0-4.8) k/uL Monocytes # 0.6 (0-1.0) k/uL Eosinophils # 0.2 (0-0.7) k/uL Basophils # 0.1 (0-0.2) k/uL PT (9.0-12.0) sec INR (<1.2) APTT (22.0-30.0) sec Sodium 139 (137-145) mmol/L Potassium 4.0 (3.5-5.1) mmol/L Chloride 110 H (98-107) mmol/L Carbon Dioxide 15 L (22-30) mmol/L Anion Gap 14 mmol/L BUN 36 H (9-20) mg/dL Creatinine 0.70 (0.66-1.25) mg/dL Est GFR (MDRD) Af Amer >60 (>60 ml/min/1.73 sqM) Est GFR (MDRD) Non-Af >60 (>60 ml/min/1.73 sqM) Glucose 168 H (74-99) mg/dL Calcium 8.4 (8.4-10.2) mg/dL Magnesium 1.9 (1.6-2.3) mg/dL Total Bilirubin 0.3 (0.2-1.3) mg/dL AST 15 L (17-59) U/L ALT 17 L (21-72) U/L Alkaline Phosphatase 46 (38-126) U/L Ammonia (<30) umol/L Total Creatine Kinase (55-170) U/L CK-MB (CK-2) (0.0-2.4) ng/mL CK-MB (CK-2) Rel Index Troponin I (0.000-0.034) ng/mL Total Protein 5.4 L (6.3-8.2) g/dL Albumin 2.9 L (3.5-5.0) g/dL Lipase 66 (23-300) U/L Stool Occult Blood Positive (Negative) Serum Alcohol <10 mg/dL Blood Type Blood Type Recheck Antibody Screen Spec Expiration Date 03/23/17 Range/Units 18:55 WBC (3.8-10.6) k/uL RBC (4.30-5.90) m/uL Hgb (13.0-17.5) gm/dL Hct (39.0-53.0) % MCV (80.0-100.0) fL MCH (25.0-35.0) pg MCHC (31.0-37.0) g/dL RDW (11.5-15.5) % Plt Count (150-450) k/uL Neutrophils % % Lymphocytes % % Monocytes % % Eosinophils % % Basophils % % Neutrophils # (1.3-7.7) k/uL Lymphocytes # (1.0-4.8) k/uL Monocytes # (0-1.0) k/uL Eosinophils # (0-0.7) k/uL Basophils # (0-0.2) k/uL PT (9.0-12.0) sec INR (<1.2) APTT (22.0-30.0) sec Sodium (137-145) mmol/L Potassium (3.5-5.1) mmol/L Chloride (98-107) mmol/L Carbon Dioxide (22-30) mmol/L Anion Gap mmol/L BUN (9-20) mg/dL Creatinine (0.66-1.25) mg/dL Est GFR (MDRD) Af Amer (>60 ml/min/1.73 sqM) Est GFR (MDRD) Non-Af (>60 ml/min/1.73 sqM) Glucose (74-99) mg/dL Calcium (8.4-10.2) mg/dL Magnesium (1.6-2.3) mg/dL Total Bilirubin (0.2-1.3) mg/dL AST (17-59) U/L ALT (21-72) U/L Alkaline Phosphatase (38-126) U/L Ammonia (<30) umol/L Total Creatine Kinase (55-170) U/L CK-MB (CK-2) (0.0-2.4) ng/mL CK-MB (CK-2) Rel Index Troponin I (0.000-0.034) ng/mL Total Protein (6.3-8.2) g/dL Albumin (3.5-5.0) g/dL Lipase (23-300) U/L Stool Occult Blood (Negative) Serum Alcohol mg/dL Blood Type A Positive Blood Type Recheck CABO Indicated Antibody Screen NEGATIVE Spec Expiration Date 03/26/2017 - 7203 - EKG Data -: EKG Interpreted by Ar EKG shows normal: sinus rhythm Rate: tachycardia (Sinus tachycardia rate 120. Interval 124 QRS 68 QT since QTC of 320/[address]-T wave changes) Critical Care Time Critical Care Time: Yes Critical Care Time: 35 is a critical care time which includes initial presentation with history physical labs x-rays this also included monitoring the EMS run and discussion with paramedics. Review of old charting. Admission orders documentation above discussion with multiple physicians. Disposition Clinical Impression: Upper GI bleed, Anemia, Melena, Hematemesis Disposition: ADMITTED IP TO THIS HOSP Condition: Serious Referrals: Marck Yeager DO [Primary Care Provider] - 1-2 days
[2017-03-23 19:08] LABS: Basophils # (A) 0.1 k/uL (0-0.2); Basophils % (A) 1 %; CHCM 33.7; Eosinophils # (A) 0.2 k/uL (0-0.7); Eosinophils % (A) 2 %; HCT 30.5 % (39.0-53.0); HDW 2.28; Luc # (Auto) 0.24; Luc % (Auto) 2; Lymphocytes # (A) 4.7 k/uL (1.0-4.8); Lymphocytes % (A) 34 %; MCH 30.7 pg (25.0-35.0); MCHC 34.4 g/dL (31.0-37.0); MCV 89.1 fL (80.0-100.0); Mean Platelet Volume 8.9; Monocytes # (A) 0.6 k/uL (0-1.0); Monocytes % (A) 4 %; Neutrophils # (A) 8.1 k/uL (1.3-7.7); Neutrophils % (A) 58 %; RBC 3.43 m/uL (4.30-5.90); RDW 14.8 % (11.5-15.5); WBC 13.9 k/uL (3.8-10.6); WBC (Perox) 13.86
[2017-03-23 19:10] LABS: HGB 10.5 gm/dL (13.0-17.5)
[2017-03-23 19:21] LABS: ALT 17 U/L (21-72); AST 15 U/L (17-59); Alcohol <10 mg/dL; Alkaline Phosphatase 46 U/L (38-126); Anion Gap 14 mmol/L; Blood Urea Nitrogen 36 mg/dL (9-20); Calcium 8.4 mg/dL (8.4-10.2); Carbon Dioxide 15 mmol/L (22-30); Chloride 110 mmol/L (98-107); Glucose 168 mg/dL (74-99); INR 1.1 (<1.2); Magnesium 1.9 mg/dL (1.6-2.3); Non-African American GFR(MDRD) >60 (>60 ml/min/1.73 sqM); Prothrombin Time 10.6 sec (9.0-12.0); Sodium 139 mmol/L (137-145); Total Bilirubin 0.3 mg/dL (0.2-1.3); Total Protein 5.4 g/dL (6.3-8.2)
[2017-03-23 19:26] LABS: Creatine Kinase <20 U/L (55-170)
[2017-03-23 19:30] LABS: Partial Thromboplastin Time 16.1 sec (22.0-30.0)
[2017-03-23 19:39] LABS: Creatine Kinase MB 0.2 ng/mL (0.0-2.4); Troponin I <0.012 ng/mL (0.000-0.034)
--- NOTE | 2017-03-23 20:07 | XR ---
EXAMINATION TYPE: XR abdomen acute w cxr DATE OF EXAM: 03/23/2017 COMPARISON: NONE HISTORY: Abdominal and chest pain TECHNIQUE: Single frontal chest radiograph, upright abdominal radiograph and supine abdominal radiog raph are obtained. FINDINGS: No focal consolidation, pleural effusion or pneumothorax is seen. Cardiac silhouette is mildly enlarg ed. Thoracic osseous structures appear grossly intact. No evidence of pneumoperitoneum. No differential air-fluid levels or dilated bowel. No abnormal calci fications within the abdomen. Calcifications within the pelvis have lucency and may represent phlebol iths. IMPRESSION: 1. No acute cardiopulmonary process. 2. Calcifications within the pelvis are favored to represent phleboliths, however if there is focal r ight-sided flank pain distal renal calculi are possible. 3. Nonobstructive bowel gas pattern.
[2017-03-23] MEDS ORDERED: NALOXONE 0.4 MG/ML 1 ML VIAL IV PRN (21:31)
[2017-03-23 22:13] LABS: Glucose,Whole Blood 105 mg/dL (75-99)
[2017-03-23] MEDS: SODIUM CHLORIDE 0.9% 1,000 ML IV SCH (22:18)
[2017-03-23 22:39] VITALS: BMI 30.9
[2017-03-24 00:55] LABS: Basophils # (A) 0.1 k/uL (0-0.2); Basophils % (A) 0 %; CH 29.8; CHCM 33.2; Eosinophils # (A) 0.1 k/uL (0-0.7); Eosinophils % (A) 1 %; HCT 27.5 % (39.0-53.0); HDW 2.26; HGB 9.1 gm/dL (13.0-17.5); Luc # (Auto) 0.19; Luc % (Auto) 2; Lymphocytes % (A) 25 %; MCHC 33.3 g/dL (31.0-37.0); MCV 90.2 fL (80.0-100.0); Mean Platelet Volume 7.4; Monocytes # (A) 0.7 k/uL (0-1.0); Monocytes % (A) 6 %; Neutrophils % (A) 66 %; RBC 3.05 m/uL (4.30-5.90); WBC 12.1 k/uL (3.8-10.6); WBC (Perox) 12.45
[2017-03-24 07:37] LABS: Anisocytosis Slight; Basophils % (A) 0 %; CH 30.8; CHCM 33.9; Eosinophils % (A) 1 %; HCT 23.6 % (39.0-53.0); HDW 2.25; HGB 7.7 gm/dL (13.0-17.5); Luc % (Auto) 1; Lymphocytes % (A) 35 %; MCH 29.7 pg (25.0-35.0); MCHC 32.5 g/dL (31.0-37.0); MCV 91.4 fL (80.0-100.0); Monocytes % (A) 6 %; Neutrophils # (A) 4.2 k/uL (1.3-7.7); Neutrophils % (A) 57 %; RBC 2.59 m/uL (4.30-5.90); RDW 16.2 % (11.5-15.5); WBC 7.4 k/uL (3.8-10.6); WBC (Perox) 7.81
[2017-03-24 07:38] LABS: Eosinophils # (A) 0.1 k/uL (0-0.7); Luc # (Auto) 0.09; Lymphocytes # (A) 2.6 k/uL (1.0-4.8); Monocytes # (A) 0.5 k/uL (0-1.0)
[2017-03-24 07:59] LABS: Anion Gap 7 mmol/L; Blood Urea Nitrogen 28 mg/dL (9-20); Calcium 8.1 mg/dL (8.4-10.2); Carbon Dioxide 23 mmol/L (22-30); Chloride 112 mmol/L (98-107); Glucose 92 mg/dL (74-99); Non-African American GFR(MDRD) >60 (>60 ml/min/1.73 sqM); Phosphorous 3.4 mg/dL (2.5-4.5); Sodium 142 mmol/L (137-145)
[2017-03-24] MEDS: SODIUM CHLORIDE 0.9% 1,000 ML IV SCH ×2 (08:18→15:21)
[2017-03-24] MEDS: PANTOPRAZOLE 40 MG/10 ML VIAL IV SCH ×2 (08:18→20:41)
--- NOTE | 2017-03-24 08:19 | P.CONS ---
History of Present Illness - Reason for Consult Consult date: 03/24/17 Hematemesis Requesting physician: Donavan Real - History of Present Illness 46-year-old male with a history of alcohol dementia, bipolar depression, remote EtOH abuse presents with acute hematemesis. Patient is not a reliable historian history obtained from medical records and nursing staff. Prior to admission [facility] home reported few episodes of bright red blood emesis as well as black colored bowel movements. Presently patient is resting complain the ICU denying abdominal pain. Nursing reports no further episodes of hematemesis or melena. Unsure if history GI bleed. Hemoglobin 10.5 on admission presently 7.7. MCV 91. Platelet 224. White count 7.4. BUN 36. Creatinine 0.7. INR 1.1. Hemoglobin on 03/17/2017 was 15.4. ANC medications reviewed no aspirin and NSAIDs or antiplatelets. Review of Systems Constitutional: Denies fever, chills, sweats, weight gain, or loss. HEENT: Negative for migraines, blurred vision or loss, earaches, drainage, tinnitus, oral mucosal lesions, dysphagia, or odynophagia. Cardiac: Negative for chest pain, arrhythmias, or palpitation. Respiratory: Negative for shortness of breath, hemoptysis, cough, or sputum production. Gastrointestinal: See HPI for pertinent findings. Genitourinary: Negative for hematuria, urgency, frequency, polyuria, dysuria, or penile discharge. Musculoskeletal: Negative for muscle aches, swelling, arthritis, and arthralgias. Neurologic: Negative for stroke or TIA. Endocrine: Negative for thyroid problems. Skin: Negative for rash or itching. Psychiatric: Alcohol dementia. Bipolar depression. ROS unobtainable: due to mental status Past Medical History Past Medical History: Dementia, GERD/Reflux, Memory Impairment Additional Past Medical History / Comment(s): per [facility]- past history of anemia/ GERD/ DEMENTIA-hx agressive behavior,bipolar depression, anxiety, past etoh abuse. past od on pills/etoh and since has memory problems-no stm. History of Any Multi-Drug Resistant Organisms: None Reported Past Surgical History: Tonsillectomy Past Anesthesia/Blood Transfusion Reactions: No Reported Reaction Past Psychological History: ADD/ADHD, Anxiety, Bipolar, Depression Additional Psychological History / Comment(s): "agressive behavior". pt lives at [facility] Smoking Status: Smoker, current status unknown Past Alcohol Use History: Occasional Additional Past Alcohol Use History / Comment(s): started smoking age 18- unclear when pt quit(smoked 1 ppd), past etoh -none now Past Drug Use History: None Reported - Past Family History Father Family Medical History: Unable to Obtain Mother Family Medical History: Unable to Obtain Medications and Allergies Home Medications Medication Instructions Recorded Confirmed Type Divalproex ER [Depakote ER] 1,500 mg PO HS 15 Days 02/06/15 03/23/17 Rx Multivitamins, Thera [Multivitamin 1 tab PO DAILY 11/21/16 03/23/17 History (formulary)] Hydrocodone/Acetaminophen [[place] 1 tab PO Q6HR PRN 03/23/17 03/23/17 History 5-325] Melatonin 10 mg PO HS 03/23/17 03/23/17 History PARoxetine HCL [Paxil] 30 mg PO DAILY 03/23/17 03/23/17 History Sennosides-Docusate Sodium 2 tab PO DAILY 03/23/17 03/23/17 History [Senokot-S] Allergies Allergy/AdvReac Type Severity Reaction Status Date / Time No Known Allergies Allergy Verified 03/23/17 18:44 Physical Exam Vitals: Vital Signs Temp Pulse Resp BP Pulse Ox 03/24/17 07:00 103 H 14 108/47 97 03/24/17 06:00 102 H 41 H 102/59 97 03/24/17 05:00 94 15 101/62 99 03/24/17 04:00 106 H 15 110/63 98 03/24/17 03:00 106 H 30 H 100/57 98 03/24/17 02:30 105 H 15 101/67 97 03/24/17 02:00 114 H 33 H 101/63 97 03/24/17 01:30 104 H 11 L 109/69 98 03/24/17 01:00 107 H 12 122/79 98 03/24/17 00:30 108 H 12 132/79 97 03/24/17 00:00 113 H 13 135/79 97 03/23/17 23:30 115 H 14 126/69 97 03/23/17 23:00 112 H 15 115/79 98 03/23/17 22:30 115 H 15 138/74 98 03/23/17 22:10 109 H 98 03/23/17 21:55 98.6 F 03/23/17 21:46 98.0 F 110 H 18 140/78 98 03/23/17 21:01 97.6 F 113 H 18 117/81 99 03/23/17 20:44 118 H 18 128/77 98 03/23/17 20:29 114 H 18 121/81 98 03/23/17 19:46 119 H 18 119/71 100 03/23/17 19:05 120 H 20 90/52 97 03/23/17 18:43 97.3 F L 124 H 20 79/57 97 Intake and Output 03/23/17 03/24/17 03/24/17 22:59 06:59 14:59 Intake Total 1000 125 Output Total 600 450 0 Balance -600 550 125 Intake: Intake, IV Titration 1000 125 Amount Sodium Chloride 0.9% 1, 1000 125 000 ml @ 125 mls/hr IV . Q8H [facility] Rx#:[id number] Output: Urine 600 450 0 Other: Voiding Method Urinal # Bowel Movements 0 # Emeses 0 Weight 103.3 kg General appearance: The patient is alert, in no acute distress. HET: Head is normocephalic and atraumatic. Pupils are equal and reactive. Oropharynx is clear without lesions. Neck: Supple without lymphadenopathy. Trachea midline. Heart: S1 S2. Regular rate and rhythm. Lungs: No crackles or wheezes are heard. Abdomen: Soft, nontender, nondistended with bowel sounds. No peritoneal signs. No palpable organomegaly or masses. Extremities: Normal skin color and turgor. No cyanosis, rash, ulceration, clubbing, or edema. Radial and pedal pulses are 2/4 bilaterally. Neurological: No focal deficits. Strength and sensation are grossly intact. Results CBC & Chem 7: 03/24/17 07:27 03/24/17 07:27 Labs: Abnormal Lab Results - Last 24 Hours (Table) 03/23/17 03/23/17 03/23/17 Range/Units 18:55 18:55 18:55 WBC (3.8-10.6) k/uL RBC (4.30-5.90) m/uL Hgb (13.0-17.5) gm/dL Hct (39.0-53.0) % RDW (11.5-15.5) % Neutrophils # (1.3-7.7) k/uL APTT 16.1 L (22.0-30.0) sec Chloride (98-107) mmol/L Carbon Dioxide (22-30) mmol/L BUN (9-20) mg/dL Creatinine (0.66-1.25) mg/dL Glucose (74-99) mg/dL POC Glucose (mg/dL) (75-99) mg/dL Calcium (8.4-10.2) mg/dL AST (17-59) U/L ALT (21-72) U/L Ammonia 31 H (<30) umol/L Total Creatine Kinase <20 L (55-170) U/L Total Protein (6.3-8.2) g/dL Albumin (3.5-5.0) g/dL 03/23/17 03/23/17 03/23/17 Range/Units 18:55 18:55 22:11 WBC 13.9 H (3.8-10.6) k/uL RBC 3.43 L (4.30-5.90) m/uL Hgb 10.5 L D (13.0-17.5) gm/dL Hct 30.5 L (39.0-53.0) % RDW (11.5-15.5) % Neutrophils # 8.1 H (1.3-7.7) k/uL APTT (22.0-30.0) sec Chloride 110 H (98-107) mmol/L Carbon Dioxide 15 L (22-30) mmol/L BUN 36 H (9-20) mg/dL Creatinine (0.66-1.25) mg/dL Glucose 168 H (74-99) mg/dL POC Glucose (mg/dL) 105 H (75-99) mg/dL Calcium (8.4-10.2) mg/dL AST 15 L (17-59) U/L ALT 17 L (21-72) U/L Ammonia (<30) umol/L Total Creatine Kinase (55-170) U/L Total Protein 5.4 L (6.3-8.2) g/dL Albumin 2.9 L (3.5-5.0) g/dL 03/24/17 03/24/17 03/24/17 Range/Units 00:43 07:27 07:27 WBC 12.1 H (3.8-10.6) k/uL RBC 3.05 L 2.59 L (4.30-5.90) m/uL Hgb 9.1 L 7.7 L (13.0-17.5) gm/dL Hct 27.5 L 23.6 L (39.0-53.0) % RDW 16.2 H (11.5-15.5) % Neutrophils # 8.0 H (1.3-7.7) k/uL APTT (22.0-30.0) sec Chloride 112 H (98-107) mmol/L Carbon Dioxide (22-30) mmol/L BUN 28 H (9-20) mg/dL Creatinine 0.62 L (0.66-1.25) mg/dL Glucose (74-99) mg/dL POC Glucose (mg/dL) (75-99) mg/dL Calcium 8.1 L (8.4-10.2) mg/dL AST (17-59) U/L ALT (21-72) U/L Ammonia (<30) umol/L Total Creatine Kinase (55-170) U/L Total Protein (6.3-8.2) g/dL Albumin (3.5-5.0) g/dL Assessment and Plan (1) Upper GI bleed Status: Acute (2) Hematemesis Status: Acute (3) Acute blood loss anemia Status: Acute (4) Melena Status: Acute (5) Alcoholic dementia Status: Acute (6) Bipolar disorder Status: Acute Plan: 1. EGD. 2. IV Protonix 40 mg BID. 3. CBC Q6H. The agriculture instructor has discussed the risks, benefits and alternative therapies for the above-mentioned procedure and for both sedation/analgesia as well as necessary blood product administration, if indicated, as they pertain to this patient. The patient's advocate has indicated understanding and acceptance of the risks and procedures discussed. Thank you for this kind referral and the opportunity to participate in the care of your patient. This consultation was discussed with Dr. Rodriguez. The impression and plan of care have been directed as dictated.
--- NOTE | 2017-03-24 10:51 | HP ---
HISTORY AND PHYSICAL DATE OF ADMISSION: 03/23/2017 PRESENTING COMPLAINT: Vomiting blood. HISTORY OF PRESENTING COMPLAINT: This is a 46-year-old patient who is a resident of [facility] and he follows with Dr. Yeager. 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 Patient's memory is rather limited, not able to give much of history. History is obtained from the old notes from nursing. Patient is drinking heavy until about 3 years ago. The patient is able to walk, brought in from the detention with vomiting blood of a large amount. Patient was hypotensive with a systolic blood pressure down to 79 on presentation and tachycardic. Denies any abdominal pain. Getting IV fluids. Put on IV Protonix. REVIEW OF SYSTEMS: CONSTITUTIONAL: Tired HEENT: None. RESPIRATORY: None. CARDIOVASCULAR: None. GASTROINTESTINAL: No abdominal pain. GENITOURINARY: None. MUSCULOSKELETAL: Some pain in the right leg. DERMATOLOGICAL: None. HEMATOLOGIC: None. LYMPHATIC: None. PSYCHIATRY: Forgetful. NEUROLOGICAL: None. PAST MEDICAL HISTORY: Traumatic brain injury causing dementia, GERD, bipolar disorder, ADD. PAST SURGICAL HISTORY: Tonsillectomy, closed reduction and IM rodding of the right tibia in November of this year. Patient not able to state more of a history. HOME MEDICATIONS: 1. Senokot-S 2 tablets p.o. daily. 2. Paxil 30 mg p.o. daily. 3. Multivitamin 1 tablet p.o. daily. 4. Melatonin 10 mg q.h.s. 5. [place] 5 one tablet q.6 p.r.n. 6. Depakote ER 1500 mg p.o. q.h.s. ALLERGIES: None. PHYSICAL EXAMINATION: Vital signs on presentation: Temperature 97.3, pulse 124, respirations 20, blood pressure 79/57, pulse ox 97% room air. GENERAL APPEARANCE: well built, lying in bed, tired-appearing. EYES: Pupils equal, conjunctivae are pale. HEENT: Oral cavity normal. NECK: JVD not raised. Mass not palpable. RESPIRATORY: Effort normal. Lungs are clear. CARDIOVASCULAR: First and second sounds, no edema. ABDOMEN: Soft, nontender. Liver and spleen not palpable. LYMPHATIC: No lymph node palpable in neck or axillae. PSYCHIATRY: Patient is able answer simple questions but memory is unlimited. NEUROLOGICAL: Moving all 4 limbs. INVESTIGATIONS: ADMISSION LABS: White count 13.9, hemoglobin 10.5, did drop down to 7.7, potassium 4, BUN 36, creatinine 0.70. Valproic acid 47. ASSESSMENT: 1. Acute severe blood loss anemia, causing hypotensive shock on presentation with patient being tachycardic, hypotensive, admitted to the ICU. 2. Upper gastrointestinal bleed, strongly suspected. 3. Chronic dementia, due to traumatic brain injury. 4. Gastroesophageal reflux disease. 5. Bipolar disorder. 6. Attention deficit disorder. PLAN: Patient's pills will be started. Made him n.p.o. otherwise. Since the patient is tachycardic, hypotensive, will give a unit of blood. Care was discussed with the patient. None of the family is present right now. GI was consulted. Patient will be monitored in the ICU until he is more hemodynamically stable. MMODL / IJN: [id number] /
[2017-03-24] MEDS: PARoxetine 10 MG TAB PO SCH (10:59)
--- NOTE | 2017-03-24 12:39 | P.CNPUL ---
History of Present Illness Consult date: 03/24/17 Chief complaint: GI bleeding History of present illness: A 46-year-old male patient with known history of alcoholic dementia at the young age and the patient is a group home resident and he is at the medical [place]. The patient came into the hospital because of melanotic stool and the same thing was having hematemesis. IV skin upper GI bleed was suspected and the patient was admitted to the intensive care unit. His admission hemoglobin was 15.4. Subsequently dropped down to 10.5 and presently is down to 7.7. The patient will be given a unit of packed RBC. Correlation profile is within normal limits. He denies taking any form of an nonsteroidal anti-inflammatory medication. No history of any liver cirrhosis despite his alcoholism. He claims that he hasn't drank for the past 3 years. No 70 peptic ulcer disease. No previous history of GI bleed. Is not clear to me whether the patient has received any EGDs in the past. Currently he got 1 L of IV fluids and he is hemodynamically stable. Fluid resuscitation is also being continued with IV fluid at the rate of 1 25 mL an hour. He is resting comfortably in bed. He is nothing by mouth and the patient will be having an EGD today. This will be done by gastroenterology. No abdominal distention. No delirium tremens. He does have some degree of confabulation knowing that the history that he provides is quite off compared to what was given to us from the group home. No aspiration. Review of Systems Constitutional: Denies fever, chills, sweats, weight gain, or loss. HEENT: Negative for migraines, blurred vision or loss, earaches, drainage, tinnitus, oral mucosal lesions, dysphagia, or odynophagia. Cardiac: Negative for chest pain, arrhythmias, or palpitation. Respiratory: Negative for shortness of breath, hemoptysis, cough, or sputum production. Gastrointestinal: See HPI for pertinent findings. Genitourinary: Negative for hematuria, urgency, frequency, polyuria, dysuria, or penile discharge. Musculoskeletal: Negative for muscle aches, swelling, arthritis, and arthralgias. Neurologic: Negative for stroke or TIA. Endocrine: Negative for thyroid problems. Skin: Negative for rash or itching. Psychiatric: Alcohol dementia. Bipolar depression A full review of system was done. Please refer to the HPI for further details. A 12 point review of system was done. Past Medical History Past Medical History: Dementia, GERD/Reflux, Memory Impairment Additional Past Medical History / Comment(s): per pmh- past history of anemia/ GERD/ DEMENTIA-hx agressive behavior,bipolar depression, anxiety, past etoh abuse. past od on pills/etoh and since has memory problems-no stm. History of Any Multi-Drug Resistant Organisms: None Reported Past Surgical History: Tonsillectomy Past Anesthesia/Blood Transfusion Reactions: No Reported Reaction Past Psychological History: ADD/ADHD, Anxiety, Bipolar, Depression Additional Psychological History / Comment(s): "agressive behavior". pt lives at [facility] Smoking Status: Smoker, current status unknown Past Alcohol Use History: Occasional Additional Past Alcohol Use History / Comment(s): started smoking age 18- unclear when pt quit(smoked 1 ppd), past etoh -none now Past Drug Use History: None Reported - Past Family History Father Family Medical History: Unable to Obtain Mother Family Medical History: Unable to Obtain Medications and Allergies Home Medications Medication Instructions Recorded Confirmed Type Divalproex ER [Depakote ER] 1,500 mg PO HS 15 Days 02/06/15 03/23/17 Rx Multivitamins, Thera [Multivitamin 1 tab PO DAILY 11/21/16 03/23/17 History (formulary)] Hydrocodone/Acetaminophen [Kimberly 1 tab PO Q6HR PRN 03/23/17 03/23/17 History 5-325] Melatonin 10 mg PO HS 03/23/17 03/23/17 History PARoxetine HCL [Paxil] 30 mg PO DAILY 03/23/17 03/23/17 History Sennosides-Docusate Sodium 2 tab PO DAILY 03/23/17 03/23/17 History [Senokot-S] Allergies Allergy/AdvReac Type Severity Reaction Status Date / Time No Known Allergies Allergy Verified 03/23/17 18:44 Physical Exam Vitals: Vital Signs Temp Pulse Pulse Resp BP BP Pulse Ox 03/24/17 11:47 98 F 94 14 90/67 100 03/24/17 11:32 98 F 93 14 102/44 100 03/24/17 11:17 98.3 F 94 12 83/53 100 03/24/17 11:07 98 F 100 12 101/60 100 03/24/17 11:00 96 13 101/60 100 03/24/17 10:00 99 12 99/66 98 03/24/17 09:00 101 H 11 L 87/57 97 03/24/17 08:11 97.5 F L 101 H 12 87/57 97 03/24/17 08:00 97.5 F L 101 H 12 102/54 99 03/24/17 07:00 103 H 14 108/47 97 03/24/17 06:00 102 H 41 H 102/59 97 03/24/17 05:00 94 15 101/62 99 03/24/17 04:00 106 H 15 110/63 98 03/24/17 03:00 106 H 30 H 100/57 98 03/24/17 02:30 105 H 15 101/67 97 03/24/17 02:00 114 H 33 H 101/63 97 03/24/17 01:30 104 H 11 L 109/69 98 03/24/17 01:00 107 H 12 122/79 98 03/24/17 00:30 108 H 12 132/79 97 03/24/17 00:00 113 H 13 135/79 97 03/23/17 23:30 115 H 14 126/69 97 03/23/17 23:00 112 H 15 115/79 98 03/23/17 22:30 115 H 15 138/74 98 03/23/17 22:10 109 H 98 03/23/17 21:55 98.6 F 03/23/17 21:46 98.0 F 110 H 18 140/78 98 03/23/17 21:01 97.6 F 113 H 18 117/81 99 03/23/17 20:44 118 H 18 128/77 98 03/23/17 20:29 114 H 18 121/81 98 03/23/17 19:46 119 H 18 119/71 100 03/23/17 19:05 120 H 20 90/52 97 03/23/17 18:43 97.3 F L 124 H 20 79/57 97 Intake and Output 03/23/17 03/24/17 03/24/17 22:59 06:59 14:59 Intake Total 1000 625 Output Total 600 450 150 Balance -600 550 475 Intake: IV 500 Sodium Chloride 0.9% 1, 500 000 ml @ 125 mls/hr IV . Q8H [facility] Rx#:[id number] Intake, IV Titration 1000 125 Amount Sodium Chloride 0.9% 1, 1000 125 000 ml @ 125 mls/hr IV . Q8H [facility] Rx#:[id number] Blood Product 0 Rc As-1 Unit 0 [id number] Output: Urine 600 450 150 Other: Voiding Method Urinal Urinal # Bowel Movements 0 # Emeses 0 Weight 103.3 kg General appearance: The patient is alert, in no acute distress. HET: Head is normocephalic and atraumatic. Pupils are equal and reactive. Oropharynx is clear without lesions. Neck: Supple without lymphadenopathy. Trachea midline. Heart: S1 S2. Regular rate and rhythm. Lungs: No crackles or wheezes are heard. Abdomen: Soft, nontender, nondistended with bowel sounds. No peritoneal signs. No palpable organomegaly or masses. Extremities: Normal skin color and turgor. No cyanosis, rash, ulceration, clubbing, or edema. Radial and pedal pulses are 2/4 bilaterally. Neurological: No focal deficits. Strength and sensation are grossly intact. Skin is intact and the patient has no ulcers or wounds Skeletal the patient has no joint deformities or any active arthritis Results - Laboratory Findings CBC and BMP: 03/24/17 07:27 03/24/17 07:27 PT/INR, D-dimer PT 10.6 sec (9.0-12.0) 03/23/17 18:55 INR 1.1 (<1.2) 03/23/17 18:55 Abnormal lab findings: Abnormal Labs 03/23/17 03/23/17 03/23/17 18:55 18:55 18:55 WBC RBC Hgb Hct RDW Neutrophils # APTT 16.1 L Chloride Carbon Dioxide BUN Creatinine Glucose POC Glucose (mg/dL) Calcium AST ALT Ammonia 31 H Total Creatine Kinase <20 L Total Protein Albumin Crossmatch 03/23/17 03/23/17 03/23/17 18:55 18:55 18:55 WBC 13.9 H RBC 3.43 L Hgb 10.5 L D Hct 30.5 L RDW Neutrophils # 8.1 H APTT Chloride 110 H Carbon Dioxide 15 L BUN 36 H Creatinine Glucose 168 H POC Glucose (mg/dL) Calcium AST 15 L ALT 17 L Ammonia Total Creatine Kinase Total Protein 5.4 L Albumin 2.9 L Crossmatch See Detail 03/23/17 03/24/17 03/24/17 22:11 00:43 07:27 WBC 12.1 H RBC 3.05 L Hgb 9.1 L Hct 27.5 L RDW Neutrophils # 8.0 H APTT Chloride 112 H Carbon Dioxide BUN 28 H Creatinine 0.62 L Glucose POC Glucose (mg/dL) 105 H Calcium 8.1 L AST ALT Ammonia Total Creatine Kinase Total Protein Albumin Crossmatch 03/24/17 07:27 WBC RBC 2.59 L Hgb 7.7 L Hct 23.6 L RDW 16.2 H Neutrophils # APTT Chloride Carbon Dioxide BUN Creatinine Glucose POC Glucose (mg/dL) Calcium AST ALT Ammonia Total Creatine Kinase Total Protein Albumin Crossmatch Assessment and Plan Plan: Assessment 1 GI bleeding likely of an upper GI source. Rule out peptic ulcer disease. Rule out is a to G of variceal bleeding. EGD will be needed to identify the source of bleed 2 anemia, secondary to acute blood loss anemia and hemoglobin down to 7.7 3 hematemesis 4 melanotic stool secondary to above 5 history of alcoholism 6 dementia likely secondary alcoholism 7 bipolar disorder Plan Continue IV fluids. Monitor hemoglobin every 6 hours. IV Protonix. Gastroenterology has been consulted and the patient will be undergoing EGD today. Meanwhile keep the patient nothing by mouth for now. No signs of any liver failure at this point. Correlation profile is within normal limits. Platelet counts are also within normal. We'll follow.
[2017-03-24] MEDS ORDERED: PROPOFOL 10 MG/ML 20 ML VIAL IV ONE (14:38)
[2017-03-24] MEDS ORDERED: IV FLUID CONTINUATION 900 ML IV ONE (14:39)
--- NOTE | 2017-03-24 15:14 | P.PCN ---
Date of Procedure: 03/24/17 Procedure(s) Performed: Procedure: Esophagogastroduodenoscopy. Preoperative diagnosis: Upper GI bleeding and anemia. Postoperative diagnosis: Moderately sized hiatal hernia and high-grade esophagitis and possible Garcia's esophagus with no active bleeding at the time of this exam. Preparation sedation: Was provided by anesthesia. Brief clinical history: The patient is a 46-year-old male with history of alcohol dementia, bipolar depression, remote EtOH abuse presents with acute hematemesis. [facility] home staff reported few episodes of bright red blood emesis as well as black colored bowel movements prior to admission. No further episodes of hematemesis or melena after admission to the ICU last night. Hemoglobin 10.5 on admission presently 7.7. MCV 91. Platelet 224. White count 7.4. BUN 36. Creatinine 0.7. INR 1.1. Hemoglobin on 03/17/2017 was 15.4. Patient was not on aspirin and NSAIDs or antiplatelets. The details are summarized in the history and physical and dictated consultations and progress notes. This evaluation is to assess for a source of bleeding. Procedure: With the patient on his left lateral decubitus position and after informed consent and adequate sedation, I passed the [id number] 160 video upper endoscope through the cricopharyngeus down the esophagus. The tubular esophagus continues to around 34 or 35 cm from the incisors and there was a moderately sized hiatal hernia then the endoscope was passed into the stomach which was insufflated with air and inspected in detail including the retroflex view in the cardia. Finally, the endoscope was passed through the pylorus into the duodenum. The stomach as well as the pyloric channel, duodenal bulb, post bulbar area and descending duodenum appeared within normal limits without any ulcers, active bleeding or old blood. The esophagus showed high-grade esophagitis with multiple ulcerations covering the surface in the distal esophagus including a larger ulceration, somewhat deep, closer to the hiatal hernia that could represent a possible source of bleeding, but there was no active bleeding or any stigmata of recent bleeding noted during this exam. More proximal areas in the esophagus raised the possibility of a background of Garcia's esophagus but was hard to tell because of the degree of inflammation. No strictures were seen. No biopsies were obtained. The patient tolerated the procedure well. Plan: Will allow liquid diet. I recommend maximizing medical therapy and repeat endoscopy after 6 or 8 weeks to assess the healing of the esophagitis and to rule out Garcia's esophagus and obtain biopsies for dysplasia if applicable. I will discuss with you and follow with you with interest.
[2017-03-24 15:39] LABS: Anisocytosis Slight; CH 30.9; CHCM 34.2; HCT 25.8 % (39.0-53.0); HDW 2.59; HGB 8.5 gm/dL (13.0-17.5); MCH 30.1 pg (25.0-35.0); MCHC 33.1 g/dL (31.0-37.0); Mean Platelet Volume 8.2; RBC 2.83 m/uL (4.30-5.90); RDW 16.4 % (11.5-15.5); WBC 7.3 k/uL (3.8-10.6)
[2017-03-24] MEDS: MELATONIN 5 MG TABLET PO SCH (20:41)
[2017-03-24] MEDS: DIVALPROEX ER 500 MG TAB.ER.24H PO SCH (20:41)
[2017-03-25] MEDS: SODIUM CHLORIDE 0.9% 1,000 ML IV SCH ×3 (00:15→14:54)
[2017-03-25 04:16] LABS: Anisocytosis Slight; CH 30.8; CHCM 34.2; HCT 22.7 % (39.0-53.0); HDW 2.78; HGB 7.7 gm/dL (13.0-17.5); MCH 30.9 pg (25.0-35.0); MCHC 34.1 g/dL (31.0-37.0); MCV 90.8 fL (80.0-100.0); Mean Platelet Volume 8.6; RDW 17.1 % (11.5-15.5); WBC 4.9 k/uL (3.8-10.6)
[2017-03-25 04:24] LABS: Anion Gap 5 mmol/L; Blood Urea Nitrogen 12 mg/dL (9-20); Calcium 7.9 mg/dL (8.4-10.2); Carbon Dioxide 24 mmol/L (22-30); Chloride 111 mmol/L (98-107); Glucose 75 mg/dL (74-99); Non-African American GFR(MDRD) >60 (>60 ml/min/1.73 sqM); Potassium 3.6 mmol/L (3.5-5.1); Sodium 140 mmol/L (137-145)
[2017-03-25] MEDS ORDERED: Potassium Replacement Protocol 1 EACH MISC MISCELLANE PRN (04:46)
[2017-03-25] MEDS ORDERED: POTASSIUM CHLORIDE ER 20 MEQ TAB.ER PO SCH (05:00)
--- NOTE | 2017-03-25 08:08 | P.PN ---
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 The patient came into the hospital because of melanotic stool and the same thing was having hematemesis. IV skin upper GI bleed was suspected and the patient was admitted to the intensive care unit. His admission hemoglobin was 15.4. Subsequently dropped down to 10.5 and presently is down to 7.7. The patient will be given a unit of packed RBC. Correlation profile is within normal limits. He denies taking any form of an nonsteroidal anti-inflammatory medication. No history of any liver cirrhosis despite his alcoholism. He claims that he hasn't drank for the past 3 years. No 70 peptic ulcer disease. No previous history of GI bleed. Is not clear to me whether the patient has received any EGDs in the past. Currently he got 1 L of IV fluids and he is hemodynamically stable. Fluid resuscitation is also being continued with IV fluid at the rate of 1 25 mL an hour. He is resting comfortably in bed. He is nothing by mouth and the patient will be having an EGD today. This will be done by gastroenterology. No abdominal distention. No delirium tremens. He does have some degree of confabulation knowing that the history that he provides is quite off compared to what was given to us from the prison. No aspiration. On 03/25/2017 the patient is seen me in follow-up. He is resting comfortably in bed. Affect there has been no significant events overnight. The patient did not show any further episodes of bleeding. EGD was done yesterday and showed a moderate-sized hiatal hernia and high-grade esophagitis and possible Garcia's esophagus without evidence of any acute bleeding. Note that the patient was having episodes of Pear[place] emesis and melanotic stools. His hemoglobin after being transfused with a unit of packed RBC dropped down to 7.7. Nevertheless since then the patient did not have any further episodes of bleeding. He is not on aspirin. He is not taking any nonsteroidal anti- inflammatory medications. His correlation profile is within normal. He was started on clear liquid diet per GI recommendations. No nausea. No vomiting. No abdominal pain. No abdominal distention. Condition is stable. Hemodynamically stable. Objective - Vital Signs Vital signs: Vital Signs Temp 98.6 F 03/25/17 04:00 Pulse 88 03/25/17 07:00 Resp 10 L 03/25/17 07:00 BP 99/56 03/25/17 07:00 Pulse Ox 97 03/25/17 07:00 Intake & Output 03/24/17 03/25/17 03/25/17 18:59 06:59 18:59 Intake Total 2420 1700 125 Output Total 800 700 Balance 1620 1000 125 Weight 102.7 kg Intake: IV 1675 1500 125 Sodium Chloride 0.9% 1, 1375 1500 125 000 ml @ 125 mls/hr IV . Q8H JOYCE Rx#:[id number] Intake, IV Titration 125 Amount Sodium Chloride 0.9% 1, 125 000 ml @ 125 mls/hr IV . Q8H JOYCE Rx#:[id number] Oral 200 Blood Product 620 Rc As-1 Unit 310 [id number] Output: Urine 800 700 Other: Voiding Method Urinal Urinal - Exam General appearance: The patient is alert, in no acute distress. HET: Head is normocephalic and atraumatic. Pupils are equal and reactive. Oropharynx is clear without lesions. Neck: Supple without lymphadenopathy. Trachea midline. Heart: S1 S2. Regular rate and rhythm. Lungs: No crackles or wheezes are heard. Abdomen: Soft, nontender, nondistended with bowel sounds. No peritoneal signs. No palpable organomegaly or masses. Extremities: Normal skin color and turgor. No cyanosis, rash, ulceration, clubbing, or edema. Radial and pedal pulses are 2/4 bilaterally. Neurological: No focal deficits. Strength and sensation are grossly intact. Skin is intact and the patient has no ulcers or wounds Skeletal the patient has no joint deformities or any active arthritis - Labs CBC & Chem 7: 03/25/17 03:54 03/25/17 03:54 Labs: Abnormal Lab Results - Last 24 Hours (Table) 03/23/17 03/24/17 03/25/17 Range/Units 18:55 15:19 03:54 RBC 2.83 L 2.50 L (4.30-5.90) m/uL Hgb 8.5 L 7.7 L (13.0-17.5) gm/dL Hct 25.8 L 22.7 L (39.0-53.0) % RDW 16.4 H 17.1 H (11.5-15.5) % Chloride (98-107) mmol/L Creatinine (0.66-1.25) mg/dL Calcium (8.4-10.2) mg/dL Crossmatch See Detail 03/25/17 Range/Units 03:54 RBC (4.30-5.90) m/uL Hgb (13.0-17.5) gm/dL Hct (39.0-53.0) % RDW (11.5-15.5) % Chloride 111 H (98-107) mmol/L Creatinine 0.64 L (0.66-1.25) mg/dL Calcium 7.9 L (8.4-10.2) mg/dL Crossmatch Assessment and Plan Plan: Assessment 1 GI bleeding likely of an upper GI source. The EGD was completed yesterday and the patient was found to have high-grade esophagitis with possible Garcia' s esophagus. There was no evidence of any acute bleeding. The patient is on PPI. The patient was started on clear liquid diet. Hemoglobin is stable at 7.7. 2 anemia, secondary to acute blood loss anemia and hemoglobin down to 7.7, the patient got transferred with a unit of packed RBC. 3 hematemesis 4 melanotic stool secondary to above 5 history of alcoholism 6 dementia likely secondary alcoholism 7 bipolar disorder Plan Continue IV fluids at 0.9 saline at the rate of 1 25 mL an hour. Monitor hemoglobin. Continue IV Protonix. Advance diet as tolerated. Monitor hemoglobin pH chest with patient to a medical floor for further recuperation monitoring.
[2017-03-25] MEDS: PARoxetine 10 MG TAB PO SCH (09:45)
[2017-03-25] MEDS: PANTOPRAZOLE 40 MG/10 ML VIAL IV SCH ×2 (09:45→21:43)
--- NOTE | 2017-03-25 09:57 | P.PN ---
Subjective Principal diagnosis: GI bleed Admitted with acute GI bleed melena status post EGD with findings of high-grade esophagitis hiatal hernia with superficial nonbleeding ulcerations possible Garcia's. History of underlying alcohol dementia not reliable historian. Nursing reports no episodes of hematemesis hematochezia melena. Tolerating clear liquids. Elbert 7.7. Objective - Vital Signs Vital signs: Vital Signs Temp 98.4 F 03/25/17 08:00 Pulse 96 03/25/17 08:00 Resp 10 L 03/25/17 08:00 BP 100/64 03/25/17 08:00 Pulse Ox 95 03/25/17 08:00 Intake & Output 03/24/17 03/25/17 03/25/17 18:59 06:59 18:59 Intake Total 2420 1700 250 Output Total 800 700 720 Balance 1620 1000 -470 Weight 102.7 kg Intake: IV 1675 1500 250 Sodium Chloride 0.9% 1, 1375 1500 250 000 ml @ 125 mls/hr IV . Q8H JOYCE Rx#:[id number] Intake, IV Titration 125 Amount Sodium Chloride 0.9% 1, 125 000 ml @ 125 mls/hr IV . Q8H JOYCE Rx#:[id number] Oral 200 Blood Product 620 Rc As-1 Unit 310 [id number] Output: Urine 800 700 720 Other: Voiding Method Urinal Urinal Urinal # Bowel Movements 0 # Emeses 0 - Exam General appearance: The patient is alert, in no acute distress. HET: Head is normocephalic and atraumatic. Pupils are equal and reactive. Oropharynx is clear without lesions. Neck: Supple without lymphadenopathy. Trachea midline. Heart: S1 S2. Regular rate and rhythm. Lungs: No crackles or wheezes are heard. Abdomen: Soft, nontender, nondistended with bowel sounds. No peritoneal signs. No palpable organomegaly or masses. Extremities: Normal skin color and turgor. No cyanosis, rash, ulceration, clubbing, or edema. Radial and pedal pulses are 2/4 bilaterally. Neurological: No focal deficits. Strength and sensation are grossly intact. - Labs CBC & Chem 7: 03/25/17 03:54 03/25/17 03:54 Labs: Abnormal Lab Results - Last 24 Hours (Table) 03/23/17 03/24/17 03/25/17 Range/Units 18:55 15:19 03:54 RBC 2.83 L 2.50 L (4.30-5.90) m/uL Hgb 8.5 L 7.7 L (13.0-17.5) gm/dL Hct 25.8 L 22.7 L (39.0-53.0) % RDW 16.4 H 17.1 H (11.5-15.5) % Chloride (98-107) mmol/L Creatinine (0.66-1.25) mg/dL Calcium (8.4-10.2) mg/dL Crossmatch See Detail 03/25/17 Range/Units 03:54 RBC (4.30-5.90) m/uL Hgb (13.0-17.5) gm/dL Hct (39.0-53.0) % RDW (11.5-15.5) % Chloride 111 H (98-107) mmol/L Creatinine 0.64 L (0.66-1.25) mg/dL Calcium 7.9 L (8.4-10.2) mg/dL Crossmatch Assessment and Plan (1) Upper GI bleed Narrative/Plan: Secondary high-grade esophagitis superficial ulcerations hiatal hernia possible Garcia's. Status: Acute (2) Hematemesis Status: Acute (3) Acute blood loss anemia Status: Acute (4) Melena Status: Acute (5) Alcoholic dementia Status: Acute (6) Bipolar disorder Status: Acute Plan: 1. Continue with Protonix 40 mg daily. 2. Advance diet. 3. CBC monitoring 4. Transfer out of ICU per floor tiling professional. 5. Return to office in 2-3 weeks for reevaluation. Repeat outpatient EGD 4-6 weeks evaluation of possible Garcia's esophagus. Assessment and plan a care discussed with Dr. Harp
[2017-03-25 16:08] LABS: Anisocytosis Slight; CHCM 34.3; HCT 24.3 % (39.0-53.0); HDW 2.68; HGB 8.2 gm/dL (13.0-17.5); MCH 30.7 pg (25.0-35.0); MCHC 33.7 g/dL (31.0-37.0); RBC 2.67 m/uL (4.30-5.90); RDW 17.5 % (11.5-15.5); WBC 5.6 k/uL (3.8-10.6)
--- NOTE | 2017-03-25 17:25 | P.PN ---
Progress Note - Text Attending note. Date of service-03/25/2017 This patient was seen and examined by me . Discussed the patient with my nurse practitioner Ms. Hankins. Admitted with vomiting blood. EGD results noted. Laying in bed comfortable. Hemodynamically stable. On examination: Lungs-decreased breath sounds, cardiovascular first seconds are normal. Laying in bed comfortable Investigations: Hemoglobin 7.7 Assessment and plan: -EGD shows moderate hiatal hernia, high-grade esophagitis, and possible Garcia' s esophagus Hemoglobin stable. Diet to be advanced as tolerated. We'll the patient out of ICU. Repeat hemoglobin in the morning
[2017-03-25] MEDS: DIVALPROEX ER 500 MG TAB.ER.24H PO SCH (21:43)
[2017-03-25] MEDS: MELATONIN 5 MG TABLET PO SCH (21:43)
[2017-03-25 23:19] VITALS: RESP 16
[2017-03-26 03:15] LABS: Anisocytosis Slight; CH 30.1; HCT 21.9 % (39.0-53.0); HDW 2.59; HGB 7.5 gm/dL (13.0-17.5); MCH 31.6 pg (25.0-35.0); MCHC 34.5 g/dL (31.0-37.0); MCV 91.7 fL (80.0-100.0); Mean Platelet Volume 7.1; RBC 2.39 m/uL (4.30-5.90); RDW 16.6 % (11.5-15.5); WBC 4.7 k/uL (3.8-10.6)
[2017-03-26] MEDS: SODIUM CHLORIDE 0.9% 1,000 ML IV SCH ×3 (05:47→11:06)
[2017-03-26 07:33] VITALS: TEMP 97.9
[2017-03-26 08:18] VITALS: BP 94/52
[2017-03-26] MEDS: PANTOPRAZOLE 40 MG/10 ML VIAL IV SCH (08:19)
[2017-03-26] MEDS: PARoxetine 10 MG TAB PO SCH (08:19)
[2017-03-26 08:44] VITALS: PULSE 96
--- NOTE | 2017-03-26 10:42 | P.PN ---
Subjective Principal diagnosis: GI bleed Admitted with acute GI bleed melena status post EGD with findings of high-grade esophagitis hiatal hernia with superficial nonbleeding ulcerations possible Garcia's. History of underlying alcohol dementia not reliable historian. Nursing reports no episodes of hematemesis hematochezia melena. Tolerating clear liquids. Hemoglobin 7.5. Objective - Vital Signs Vital signs: Vital Signs Temp 97.9 F 03/26/17 07:00 Pulse 96 03/26/17 08:00 Resp 16 03/26/17 08:00 BP 94/52 03/26/17 08:16 Pulse Ox 100 03/26/17 07:00 Intake & Output 03/25/17 03/26/17 03/26/17 18:59 06:59 18:59 Intake Total 250 Output Total 1280 900 400 Balance -1030 -900 -400 Intake: IV 250 Sodium Chloride 0.9% 1, 250 000 ml @ 125 mls/hr IV . Q8H JOYCE Rx#:[id number] Output: Urine 1280 900 400 Other: Voiding Method Urinal Urinal # Voids 0 # Bowel Movements 0 # Emeses 0 - Exam General appearance: The patient is alert, in no acute distress. HET: Head is normocephalic and atraumatic. Pupils are equal and reactive. Oropharynx is clear without lesions. Neck: Supple without lymphadenopathy. Trachea midline. Heart: S1 S2. Regular rate and rhythm. Lungs: No crackles or wheezes are heard. Abdomen: Soft, nontender, nondistended with bowel sounds. No peritoneal signs. No palpable organomegaly or masses. Extremities: Normal skin color and turgor. No cyanosis, rash, ulceration, clubbing, or edema. Radial and pedal pulses are 2/4 bilaterally. Neurological: No focal deficits. Strength and sensation are grossly intact. - Labs CBC & Chem 7: 03/26/17 03:01 03/25/17 03:54 Labs: Abnormal Lab Results - Last 24 Hours (Table) 03/25/17 03/26/17 Range/Units 15:49 03:01 RBC 2.67 L 2.39 L (4.30-5.90) m/uL Hgb 8.2 L 7.5 L (13.0-17.5) gm/dL Hct 24.3 L 21.9 L (39.0-53.0) % RDW 17.5 H 16.6 H (11.5-15.5) % Assessment and Plan (1) Upper GI bleed Narrative/Plan: Secondary high-grade esophagitis superficial ulcerations hiatal hernia possible Garcia's. Status: Acute (2) Hematemesis Status: Acute (3) Acute blood loss anemia Status: Acute (4) Melena Status: Acute (5) Alcoholic dementia Status: Acute (6) Bipolar disorder Status: Acute Plan: 1. Continue with Protonix 40 mg daily. 2. Diet as tolerated. 3. Return to office in 2-3 weeks for reevaluation. Repeat outpatient EGD 4-6 weeks evaluation of possible Garcia's esophagus. Assessment and plan a care discussed with Dr. Harp
--- NOTE | 2017-03-26 16:52 | P.DS ---
Providers Date of admission: 03/23/17 21:31 Expected date of discharge: 03/26/17 Attending physician: Donavan Real Consults: 03/23/17 21:31 Consult Physician Stat Consulting Provider: Trinh Arenas Consult Reason/Comments: ICU management Do you want consulting provider notified?: Already Contacted Consult Physician Stat Consulting Provider: James Rodriguez Consult Reason/Comments: Upper GI bleed Do you want consulting provider notified?: Already Contacted Primary care physician: [facility] Course: FINAL DIAGNOSES: -Acute severe blood loss anemia causing hypotensive shock on presentation the patient remained tachycardic, hypotensive admitted to the ICU. -Moderate hiatal hernia, -High-grade esophagitis with possible Garcia's esophagus. -Upper gastrointestinal bleed, strongly suspected. -Chronic dementia, due to traumatic brain injury. -Gastro-subcu reflux disease. -Bipolar disorder. -Attention deficit disorder. HOSPTIAL COURSE: 46-year-old male resident of an [facility] who presented after he had been vomiting large amounts of blood at the correction. Hypotensive on arrival systolic blood pressure down and to 79 with tachycardia. Admitted to the ICU, GI consulted, ICU polymerization oven operator consulted. Patient received a unit of packed red blood cells for hemoglobin 7.7. Hemoglobin monitored every 6 hours, received IV Protonix. EGD performed by GI revealing moderate hiatal hernia, high-grade esophagitis with possible Garcia's esophagus. No active bleeding. Patient's overall condition stabilized in the ICU had no further episodes of bleeding, diet advanced patient tolerated. Subsequent to transferred to regular medicine floor, condition has stabilized, no further bleeding or abdominal pain or coughing up blood. Tolerating his diet eating between 50 and 75% of each meal. Last BM 03/24/2017 ambulatory with some assistance, PHYSICAL EXAM: CARDIOVASCULAR: First and second sounds noted no edema RESPIRATORY: Respiratory effort normal, lungs clear to auscultation bilaterally GI: Abdomen soft nontender liver and spleen not palpable, no further episodes of bleeding from the rectum or in sputum or vomiting. PSYCHIATRY: Able to answer simple questions but memory is very limited due to traumatic brain injury in the past. Patient was seen and examined by nurse practitioner Rowan Hankins in all elements of the case discussed with attending Dr. Real DISPOSITION: Discharge back to [facility]. Patient should follow-up in 6-8 weeks to reevaluate with GI existence of Garcia's esophagus and the healing of the high-grade esophagitis. Patient Condition at Discharge: Stable Plan - Discharge Summary New Discharge Prescriptions: New Omeprazole [PriLOSEC] 40 mg PO DAILY #30 capsule.dr Walker Divalproex ER [Depakote ER] 1,500 mg PO HS 15 Days Multivitamins, Thera [Multivitamin (formulary)] 1 tab PO DAILY Sennosides-Docusate Sodium [Senokot-S] 2 tab PO DAILY PARoxetine HCL [Paxil] 30 mg PO DAILY Melatonin 10 mg PO HS Hydrocodone/Acetaminophen [[place] 5-325] 1 tab PO Q6HR PRN #14 PRN Reason: Pain Discharge Medication List Divalproex ER [Depakote ER] 1,500 mg PO HS 15 Days 02/06/15 [Rx] Multivitamins, Thera [Multivitamin (formulary)] 1 tab PO DAILY 11/21/16 [History ] Melatonin 10 mg PO HS 03/23/17 [History] PARoxetine HCL [Paxil] 30 mg PO DAILY 03/23/17 [History] Sennosides-Docusate Sodium [Senokot-S] 2 tab PO DAILY 03/23/17 [History] Omeprazole [PriLOSEC] 40 mg PO DAILY #30 capsule. 03/25/17 [Rx] Hydrocodone/Acetaminophen [[place] 5-325] 1 tab PO Q6HR PRN #14 03/26/17 [Rx] Follow up Appointment(s)/Referral(s): James Rodriguez MD [STAFF PHYSICIAN] - 04/20/17 4:00 pm Marck Yeager DO [Primary Care Provider] - 1-2 days [facility] [NON-STAFF] - 1 Week Ambulatory/Diagnostic Orders: Complete Blood Count w/diff [LAB.AMB] Time Frame: 3 Days, Location: Determined By Patient Patient Instructions/Handouts: Hiatal Hernia (DC), Gastrointestinal Bleeding ( DC) Activity/Diet/Wound Care/Special Instructions: NO smoking, cessation information provided. Low fiber diet.
--- NOTE | 2017-03-27 19:07 | DS ---
DISCHARGE SUMMARY ATTENDING NOTE: This patient seen and examined by me. I discussed with my nurse practitioner, Ms. Hankins. This patient is seen by me on 03/26/2017. Presented with vomiting blood and was hypotensive. Patient transfused 1 unit of blood. Hemoglobin stable at 7.5. No further bleeding. PHYSICAL EXAMINATION: LUNGS: Decreased breath sounds. CARDIOVASCULAR: First and second sounds normal. Patient is answering simple questions. Patient is stable to be transferred back to the [facility]. Condition is stable. MMODL / IJN: [id number] /
== END 2017-03-26 17:20 | DRG 380 ==
LOC: EC 18:36 → 6ICU 21:31 → 4MS4W 03-25 14:02
PROVIDERS: ADMIT Hospitalist; ATTEND Hospitalist
PROC: 30233N1 Transfusion of Nonautologous Red Blood Cells into Peripheral Vein, Percutaneous Approach (ICD-10-PCS; 2017-03-24)
PROC: 0DJ08ZZ Inspection of Upper Intestinal Tract, Via Natural or Artificial Opening Endoscopic (ICD-10-PCS; principal; 2017-03-24 10:50)
DX: K22.70 Barrett's esophagus without dysplasia (principal); R57.8 Other shock; D62 Acute posthemorrhagic anemia; F10.27 Alcohol dependence with alcohol-induced persisting dementia; F90.9 Attention-deficit hyperactivity disorder, unspecified type; K21.0 Gastro-esophageal reflux disease with esophagitis; K44.9 Diaphragmatic hernia without obstruction or gangrene; F32.9 Major depressive disorder, single episode, unspecified; F41.9 Anxiety disorder, unspecified; Z79.899 Other long term (current) drug therapy; Z87.891 Personal history of nicotine dependence
CPT/HCPCS: 36415; 43235; 74022; 80048; 80053; 80164; 80320; 82140; 82272; 82550; 82553; 83690; 83735; 84100; 84484; 85025; 85027; 85610; 85730; 86850; 86900; 86901; 86920; 93005; 96361; 96374; 99291

== ENCOUNTER 2017-07-17 17:01 | Emergency (ER) | payer MEDICARE, OTHER ==
--- NOTE | 2017-07-17 17:39 | ED ---
Psych HPI - General Chief Complaint: Psychiatric Symptoms Stated Complaint: Mental Health Eval Time Seen by Provider: 07/17/17 17:27 Source: patient, RN notes reviewed Mode of arrival: EMS Limitations: no limitations - History of Present Illness Initial Comments: This is a 47-year-old male who presents to the emergency department for mental health evaluation. Patient arrived via EMS. Patient is a resident of [facility]. This evening patient was petitioned after being threatening towards staff. Patient states that it was all a misunderstanding and that he should not be here. He denies any suicidal or homicidal ideation. He denies hallucinations. Patient states that he has been feeling fine physically. Denies fever, chills, chest pain, shortness of breath, abdominal pain, nausea or vomiting, constipation or diarrhea, dysuria or hematuria, numbness or tingling, headache or vision changes. - Related Data Home Medications Medication Instructions Recorded Confirmed Multivitamins, Thera [Multivitamin 1 tab PO DAILY 11/21/16 07/17/17 (formulary)] Melatonin 10 mg PO HS 03/23/17 07/17/17 Sennosides-Docusate Sodium 2 tab PO HS 03/23/17 07/17/17 [Senokot-S] Magnesium Hydroxide [Milk of 2,400 mg PO Q72H PRN 06/17/17 07/17/17 Magnesia] Omeprazole 40 mg PO DAILY 06/17/17 07/17/17 Acetaminophen Tab [Tylenol Tab] 650 mg PO Q6H PRN 07/17/17 07/17/17 Divalproex ER [Depakote ER] 500 mg PO TID@,,07/17/17 07/17/17 Previous Rx's Medication Instructions Recorded OLANZapine [ZyPREXA] 2.5 mg PO BID #60 tab 06/22/17 PARoxetine [Paxil] 20 mg PO BID #60 tab 06/22/17 OLANZapine [ZyPREXA] 5 mg PO BID #10 tablet 07/17/17 Allergies Allergy/AdvReac Type Severity Reaction Status Date / Time No Known Allergies Allergy Verified 07/17/17 17:46 Review of Systems ROS Statement: Those systems with pertinent positive or pertinent negative responses have been documented in the HPI. ROS Other: All systems not noted in ROS Statement are negative. Past Medical History Past Medical History: Dementia, GERD/Reflux, Memory Impairment Additional Past Medical History / Comment(s): per [facility]- past history of anemia/ GERD/ DEMENTIA-hx agressive behavior,bipolar depression, anxiety, past etoh abuse. past od on pills/etoh and since has memory problems-no stm. History of Any Multi-Drug Resistant Organisms: None Reported Past Surgical History: Tonsillectomy Past Anesthesia/Blood Transfusion Reactions: No Reported Reaction Smoking Status: Smoker, current status unknown - Past Family History Father Family Medical History: Unable to Obtain Mother Family Medical History: Unable to Obtain General Exam - General Exam Comments Initial Comments: General: Awake and alert, well-developed; in no apparent distress. Calm and cooperative. HEENT: Head atraumatic, normocephalic. Pupils are equal, round and reactive to light. Extraocular movements intact. Oropharynx moist without erythema or exudate. Neck: Supple. Normal ROM. Cardiovascular: Regular rate and rhythm. No murmurs, rubs or gallops. Chest symmetrical. Respiratory: Lungs clear to auscultation bilaterally. No wheezes, rales or rhonchi. Normal respiratory effort with no use of accessory muscles. Abdomen: Soft, non-tender, non-distended. No rigidity, rebound or guarding. Normal bowel sounds in all 4 quadrants. Musculoskeletal: Normal ROM, no tenderness bilateral upper and lower extremities. Skin: [place], warm and dry without rashes or lesions. Neurological: Alert and oriented x3. CN II-XII grossly intact. Speech is fluent and answers are appropriate. No focal neuro deficits. Psychiatric: Normal mood and affect. No overt signs of depression or anxiety noted. Course Vital Signs 07/17/17 19:04 Pulse Rate 110 H Respiratory 20 Rate Blood Pressure 153/96 O2 Sat by Pulse 95 Oximetry Medical Decision Making - Medical Decision Making This is a 47-year-old male who presents to emergency department for evaluation of mental health. Patient denies any suicidal or homicidal ideation at this time. I discussed this case with the social work msw and am in agreement with her plan. Patient's Zyprexa will be increased to 5 mg twice a day and he will be discharged back to [facility]. Urine drug screen and back were negative. - Lab Data Lab Results 07/17/17 Range/Units 20:23 Urine Opiates Screen Not Detected (NotDetected) Ur Oxycodone Screen Not Detected (NotDetected) Urine Methadone Screen Not Detected (NotDetected) Ur Propoxyphene Screen Not Detected (NotDetected) Ur Barbiturates Screen Not Detected (NotDetected) U Tricyclic Antidepress Not Detected (NotDetected) Ur Phencyclidine Scrn Not Detected (NotDetected) Ur Amphetamines Screen Not Detected (NotDetected) U Methamphetamines Scrn Not Detected (NotDetected) U Benzodiazepines Scrn Not Detected (NotDetected) Urine Cocaine Screen Not Detected (NotDetected) U Marijuana (THC) Screen Not Detected (NotDetected) Disposition Clinical Impression: Aggressive behavior Disposition: HOME SELF-CARE Condition: Good Instructions: Mood Disorders (ED) Additional Instructions: Patient's Zyprexa will be increased to 5 mg twice a day. Please follow up with primary care provider within 1-2 days. Return to emergency department if symptoms should worsen or any concerns arise. Prescriptions: OLANZapine [ZyPREXA] 5 mg PO BID #10 tablet Referrals: Nathaniel Fernandes MD [Primary Care Provider] - 1-2 days Time of Disposition: 21:08
[2017-07-17 20:50] LABS: Amphetamine Screen,Urine Not Detected (NotDetected); Barbiturate Screen,Urine Not Detected (NotDetected); Benzodiazepines Screen,Urine Not Detected (NotDetected); Cocaine Screen,Urine Not Detected (NotDetected); Methadone Screen, Urine Not Detected (NotDetected); Opiate Screen,Urine Not Detected (NotDetected); Oxycodone Screen, Urine Not Detected (NotDetected); Phencyclidine Screen,Urine Not Detected (NotDetected); Tricyclic Antidepressant,Urine Not Detected (NotDetected); Urn Cannabinoid Scrn Not Detected (NotDetected)
[2017-07-17 21:19] VITALS: BP 127/63; PULSE 99; RESP 18; TEMP 98.7
== END 2017-07-17 22:02 | disposition home or self-care (01) ==
LOC: EC 17:01
DX: F91.1 Conduct disorder, childhood-onset type (principal); F03.90 Unspecified dementia, unspecified severity, without behavioral disturbance, psychotic disturbance, mood disturbance, and anxiety; K21.9 Gastro-esophageal reflux disease without esophagitis; F31.9 Bipolar disorder, unspecified; D64.9 Anemia, unspecified; F17.200 Nicotine dependence, unspecified, uncomplicated; Z79.899 Other long term (current) drug therapy
CPT/HCPCS: 80306; 82075; 99284

== ENCOUNTER 2017-08-30 23:04 | Emergency (ER) | payer MEDICARE, OTHER ==
[2017-08-30 23:16] VITALS: RESP 18
[2017-08-30 23:36] LABS: Amphetamine Screen,Urine Not Detected (NotDetected); Barbiturate Screen,Urine Not Detected (NotDetected); Benzodiazepines Screen,Urine Not Detected (NotDetected); Cocaine Screen,Urine Not Detected (NotDetected); Methadone Screen, Urine Not Detected (NotDetected); Opiate Screen,Urine Not Detected (NotDetected); Oxycodone Screen, Urine Not Detected (NotDetected); Phencyclidine Screen,Urine Not Detected (NotDetected); Tricyclic Antidepressant,Urine Not Detected (NotDetected); Urn Cannabinoid Scrn Not Detected (NotDetected)
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
[2017-08-31 02:27] VITALS: BP 122/74; PULSE 97; TEMP 97.3
== END 2017-08-31 02:29 | disposition other institution (70) ==
LOC: EC 23:04
DX: R45.6 Violent behavior (principal); K21.9 Gastro-esophageal reflux disease without esophagitis; F41.9 Anxiety disorder, unspecified; F17.200 Nicotine dependence, unspecified, uncomplicated; Z79.899 Other long term (current) drug therapy
CPT/HCPCS: 80306; 82075; 99285

== ENCOUNTER 2020-01-31 23:04 | Emergency (ER) | payer MEDICARE, OTHER ==
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
[2020-02-01 03:56] VITALS: BP 124/77; PULSE 73; RESP 18; TEMP 97.7
== END 2020-02-01 03:45 | disposition home or self-care (01) ==
LOC: EC 23:04
DX: R45.1 Restlessness and agitation (principal); K21.9 Gastro-esophageal reflux disease without esophagitis; F17.200 Nicotine dependence, unspecified, uncomplicated; Z79.899 Other long term (current) drug therapy
CPT/HCPCS: 82075; 99285

== ENCOUNTER 2021-10-01 16:32 | Emergency (ER) | payer MEDICARE, OTHER ==
[2021-10-01 16:48] VITALS: RESP 18; TEMP 98.8
--- NOTE | 2021-10-01 17:34 | ED ---
General Adult HPI - General Chief complaint: Psychiatric Symptoms Stated complaint: Behaviorial issue Time Seen by Provider: 10/01/21 17:05 Source: patient, EMS, RN notes reviewed Mode of arrival: EMS Limitations: altered mental status - History of Present Illness Initial comments: Patient is a pleasant 41-year-old male presenting to the emergency department with concerns for agitation. Patient states he may have been a little bit agitated earlier today however does not remember details. Patient states he was probably little bit agitated at the fact he had come to the hospital. Patient states the past few days otherwise he has been doing fine. Patient does not believe he is on any medications or skipping any medications. Patient denies hallucinations. No alcohol or street drug use. No suicidal or homicidal thoughts. No physical complaints. - Related Data Home Medications Medication Instructions Recorded Confirmed Multivitamins, Thera [Multivitamin 1 tab PO DAILY 11/21/16 08/30/17 (formulary)] Melatonin 10 mg PO HS 03/23/17 08/30/17 Sennosides-Docusate Sodium 2 tab PO HS 03/23/17 08/30/17 [Senokot-S] Magnesium Hydroxide [Milk of 2,400 mg PO Q72H PRN 06/17/17 08/30/17 Magnesia] Omeprazole 40 mg PO DAILY 06/17/17 08/30/17 Acetaminophen Tab [Tylenol Tab] 650 mg PO Q6H PRN 07/17/17 08/30/17 Previous Rx's Medication Instructions Recorded PARoxetine [Paxil] 20 mg PO BID #60 tab 06/22/17 OLANZapine [ZyPREXA] 5 mg PO BID #10 tablet 07/17/17 Allergies Allergy/AdvReac Type Severity Reaction Status Date / Time No Known Allergies Allergy Verified 01/31/20 23:15 Review of Systems ROS Statement: Those systems with pertinent positive or pertinent negative responses have been documented in the HPI. ROS Other: All systems not noted in ROS Statement are negative. Constitutional: Denies: fever Eyes: Denies: eye pain ENT: Denies: ear pain Respiratory: Denies: cough Cardiovascular: Denies: chest pain Endocrine: Denies: fatigue Gastrointestinal: Denies: abdominal pain Genitourinary: Denies: dysuria Musculoskeletal: Denies: back pain Skin: Denies: rash Neurological: Denies: weakness Psychiatric: Reports: as per HPI Past Medical History Past Medical History: Dementia, GERD/Reflux, Memory Impairment Additional Past Medical History / Comment(s): per [facility]- past history of anemia/ GERD/ DEMENTIA-hx agressive behavior,bipolar depression, anxiety, past etoh abuse. past od on pills/etoh and since has memory problems-no stm. History of Any Multi-Drug Resistant Organisms: None Reported Past Surgical History: Tonsillectomy Past Anesthesia/Blood Transfusion Reactions: No Reported Reaction Past Psychological History: ADD/ADHD, Anxiety, Bipolar, Depression Smoking Status: Current every day smoker Past Alcohol Use History: None Reported Past Drug Use History: None Reported - Past Family History Father Family Medical History: Unable to Obtain Mother Family Medical History: Unable to Obtain General Exam Limitations: altered mental status General appearance: alert, in no apparent distress Head exam: Present: normocephalic Eye exam: Present: normal appearance Neck exam: Present: normal inspection Respiratory exam: Present: normal lung sounds bilaterally Cardiovascular Exam: Present: regular rate, normal rhythm GI/Abdominal exam: Present: soft. Absent: tenderness Extremities exam: Present: normal inspection. Absent: pedal edema Neurological exam: Present: alert Psychiatric exam: Present: normal affect, normal mood Skin exam: Present: normal color Course Vital Signs 10/01/21 16:40 Temperature 98.8 F Pulse Rate 97 Respiratory 18 Rate Blood Pressure 172/87 O2 Sat by Pulse 96 Oximetry Medical Decision Making - Medical Decision Making Patient seen by mental health services with plans for discharge. Patient reevaluated and still resting comfortably in bed. Patient does not cause any problems at this time. Patient is agreeable not to cause problems when he r eturns. Disposition Clinical Impression: Agitation Disposition: HOME SELF-CARE Condition: Stable Instructions (If sedation given, give patient instructions): Conduct Disorder in Children (ED), Cognitive Behavioral Therapy (ED) Additional Instructions: Please do follow-up with primary care physician and mental health services as directed. Primary care physician in the next one to 2 days. Return for worsening or change in symptoms or other concerns. Is patient prescribed a controlled substance at d/c from ED?: No Referrals: Marck Yeager DO [Primary Care Provider] - 1-2 days Time of Disposition: 19:46
[2021-10-01 19:59] VITALS: BP 164/74; PULSE 79
== END 2021-10-01 21:25 | disposition home or self-care (01) ==
LOC: EC 16:32
DX: R45.1 Restlessness and agitation (principal); F03.90 Unspecified dementia, unspecified severity, without behavioral disturbance, psychotic disturbance, mood disturbance, and anxiety; F17.200 Nicotine dependence, unspecified, uncomplicated
CPT/HCPCS: 82075; 99284

== ENCOUNTER 2022-01-28 20:54 | Emergency (ER) | payer MEDICARE, OTHER ==
[2022-01-28 21:10] VITALS: BP 119/78; PULSE 99; RESP 20; TEMP 98.2
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
[2022-01-29] MEDS ORDERED: LORazepam 2 MG/ML INJ IM STA (00:38)
[2022-01-29] MEDS ORDERED: HALOPERIDOL LACTATE 5 MG/ML 1 ML VIAL IM STA (00:39)
== END 2022-01-29 02:45 | disposition home or self-care (01) ==
LOC: EC 20:54
DX: F39 Unspecified mood [affective] disorder (principal); F17.200 Nicotine dependence, unspecified, uncomplicated; K21.9 Gastro-esophageal reflux disease without esophagitis; Z79.899 Other long term (current) drug therapy
CPT/HCPCS: 96372; 99284

== ENCOUNTER 2022-12-21 22:49 | Emergency (ER) | payer MEDICARE, OTHER ==
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
[2022-12-22 07:26] VITALS: RESP 18; TEMP 98.3
[2022-12-22 10:43] LABS: Basophils % (A) 0 %; Eosinophils # (A) 0.1 k/uL (0-0.7); Eosinophils % (A) 1 %; HCT 44.6 % (39.0-53.0); HGB 14.7 gm/dL (13.0-17.5); Lymphocytes # (A) 1.6 k/uL (1.0-4.8); Lymphocytes % (A) 28 %; MCH 30.2 pg (25.0-35.0); MCHC 32.9 g/dL (31.0-37.0); MCV 91.9 fL (80.0-100.0); Mean Platelet Volume 8.6; Monocytes # (A) 0.3 k/uL (0-1.0); Monocytes % (A) 6 %; Neutrophils # (A) 3.6 k/uL (1.3-7.7); Neutrophils % (A) 64 %; Platelet Count 199 k/uL (150-450); RBC 4.86 m/uL (4.30-5.90); RDW 13.9 % (11.5-15.5); WBC 5.6 k/uL (3.8-10.6)
[2022-12-22 11:03] LABS: ALT 21 U/L (4-49); AST 19 U/L (17-59); African American GFR (CKD) >90 (>60 ml/min/1.73 sqM); Albumin 3.8 g/dL (3.5-5.0); Alkaline Phosphatase 53 U/L (38-126); Anion Gap 9 mmol/L; Blood Urea Nitrogen 14 mg/dL (9-20); Calcium 8.9 mg/dL (8.4-10.2); Carbon Dioxide 23 mmol/L (22-30); Chloride 104 mmol/L (98-107); Glucose 338 mg/dL (74-99); Non-African American GFR(CKD) >90 (>60 ml/min/1.73 sqM); Potassium 4.4 mmol/L (3.5-5.1); Sodium 136 mmol/L (137-145); Total Bilirubin 0.4 mg/dL (0.2-1.3); Total Protein 6.8 g/dL (6.3-8.2)
[2022-12-22 15:10] VITALS: BP 110/76; PULSE 82
== END 2022-12-22 15:40 | disposition home or self-care (01) ==
LOC: EC 22:49
DX: Z00.8 Encounter for other general examination (principal); K21.9 Gastro-esophageal reflux disease without esophagitis; F90.9 Attention-deficit hyperactivity disorder, unspecified type; F41.9 Anxiety disorder, unspecified; F31.9 Bipolar disorder, unspecified; F17.200 Nicotine dependence, unspecified, uncomplicated; Z79.899 Other long term (current) drug therapy; Z91.018 Allergy to other foods
CPT/HCPCS: 36415; 80053; 82075; 82140; 85025; 99285

== ENCOUNTER → 2023-07-02 | Outpatient (CLI) | payer MEDICARE, OTHER ==
[2023-07-02 16:24] LABS: ALT 14 U/L (4-49); AST 17 U/L (17-59); African American GFR (CKD) >90 (>60 ml/min/1.73 sqM); Albumin 4.2 g/dL (3.5-5.0); Albumin/Globulin Ratio 1.2; Alkaline Phosphatase 55 U/L (38-126); Anion Gap 16 mmol/L; Blood Urea Nitrogen 15 mg/dL (9-20); Calcium 9.5 mg/dL (8.4-10.2); Carbon Dioxide 18 mmol/L (22-30); Chloride 107 mmol/L (98-107); Globulin 3.4 g/dL; Glucose 179 mg/dL (74-99); Non-African American GFR(CKD) >90 (>60 ml/min/1.73 sqM); Potassium 4.7 mmol/L (3.5-5.1); Sodium 141 mmol/L (137-145); Total Bilirubin 0.5 mg/dL (0.2-1.3); Total Protein 7.6 g/dL (6.3-8.2)
== END | disposition home or self-care (01) ==
LOC: LABPRL 14:22 → LABMEDISNF 14:22 → EDSTATUS 14:25
PROVIDERS: ATTEND Family Medicine
DX: I10 Essential (primary) hypertension (principal); E11.9 Type 2 diabetes mellitus without complications; J09.X2 Influenza due to identified novel influenza A virus with other respiratory manifestations
CPT/HCPCS: 80053

== ENCOUNTER 2024-10-12 16:02 | Emergency (ER) | payer MEDICARE, OTHER ==
[2024-10-12 16:32] VITALS: RESP 18; TEMP 98
--- NOTE | 2024-10-12 16:55 | ED ---
Skin/Abscess/FB HPI - General Chief complaint: Skin/Abscess/Foreign Body Stated complaint: Facial swelling Time Seen by Provider: 10/12/24 16:52 Source: patient, RN notes reviewed Mode of arrival: EMS - History of Present Illness Initial comments: 54-year-old male sent from [facility] for a facial abscess x 1 week. Per EMS, patient has been on amoxicillin for 3 days and abscess has continued to grow in size. Patient denies dental pain or difficulty eating, breathing, or swal lowing. Denies fever, chills. Patient has a history of dementia and memory impairment. - Related Data Home Medications Medication Instructions Recorded Confirmed Multivitamins, Thera [Multivitamin 1 tab PO DAILY@0800 11/21/16 12/22/22 (formulary)] Melatonin 10 mg PO HS@199903/23/17 12/22/22 Omeprazole 20 mg PO DAILY@0800 06/17/17 12/22/22 Atorvastatin [Lipitor] 80 mg PO HS@199901/28/22 12/22/22 Cholecalciferol [Vitamin D3 (25 25 mcg PO DAILY@0800 01/28/22 12/22/22 Mcg = 1000 Iu)] Divalproex ER [Depakote ER] 500 mg PO TID@0700,1300,2100 01/28/22 12/22/22 Insulin Glargine (Lantus) [Lantus 32 unit SQ DAILY@0700 01/28/22 12/22/22 Vial] LORazepam [Ativan] 1 mg PO HS@199901/28/22 12/22/22 Topiramate [Topamax] 200 mg PO BID@0900,1700 01/28/22 12/22/22 lisinopriL [Zestril] 10 mg PO DAILY@0800 01/28/22 12/22/22 metFORMIN HCL [Glucophage] 1,000 mg PO BID@0900,1700 01/28/22 12/22/22 ARIPiprazole [Abilify] 10 mg PO HS@199912/22/22 12/22/22 Ibuprofen [Motrin] 600 mg PO Q8HR PRN 12/22/22 12/22/22 Insulin Glargine (Lantus) [Lantus 46 unit SQ DAILY@1600 12/22/22 12/22/22 Vial] Lactulose [Constulose] 20 gm PO Q6H 12/22/22 12/22/22 PARoxetine [Paxil] 10 mg PO DAILY@0600 12/22/22 12/22/22 PARoxetine [Paxil] 20 mg PO HS@2000 12/22/22 12/22/22 gemfibroziL [Lopid] 600 mg PO AC-SUPPER 12/22/22 12/22/22 Previous Rx's Medication Instructions Recorded Cephalexin [Keflex] 500 mg PO Q6HR #40 cap 10/12/24 Sulfamethox-Tmp 800-160Mg [Bactrim 1 each PO Q12HR #20 tab 10/12/24 Ds] Allergies Allergy/AdvReac Type Severity Reaction Status Date / Time SEAWEED Allergy Unknown Uncoded 10/12/24 16:32 Review of Systems ROS Statement: Those systems with pertinent positive or pertinent negative responses have been documented in the HPI. ROS Other: All systems not noted in ROS Statement are negative. Past Medical History Past Medical History: Dementia, GERD/Reflux, Memory Impairment Additional Past Medical History / Comment(s): per pmh- past history of anemia/ GERD/ DEMENTIA-hx agressive behavior,bipolar depression, anxiety, past etoh abuse. past od on pills/etoh and since has memory problems-no stm. History of Any Multi-Drug Resistant Organisms: None Reported Past Surgical History: Tonsillectomy Past Anesthesia/Blood Transfusion Reactions: No Reported Reaction Past Psychological History: ADD/ADHD, Anxiety, Bipolar, Depression Smoking Status: Current every day smoker Past Alcohol Use History: None Reported Past Drug Use History: None Reported - Past Family History Father Family Medical History: Unable to Obtain Mother Family Medical History: Unable to Obtain General Exam General appearance: alert, in no apparent distress Head exam: Present: atraumatic, normocephalic, other (There is a 5 x 5 cm fluctuant erythematous mass present on left cheek. No active drainage.) Eye exam: Present: normal appearance, PERRL, EOMI. Absent: scleral icterus, conjunctival injection, periorbital swelling ENT exam: Present: normal exam, normal oropharynx, mucous membranes moist Neck exam: Present: normal inspection. Absent: tenderness, meningismus, lymphadenopathy Respiratory exam: Present: normal lung sounds bilaterally. Absent: respiratory distress, wheezes, rales, rhonchi, stridor Cardiovascular Exam: Present: regular rate, normal rhythm, normal heart sounds. Absent: systolic murmur, diastolic murmur, rubs, gallop, clicks Neurological exam: Present: alert, oriented X3 Psychiatric exam: Present: normal affect, normal mood Skin exam: Present: warm, dry, intact, normal color. Absent: rash Course Vital Signs 10/12/24 16:28 Temperature 98.0 F Pulse Rate 101 H Respiratory 18 Rate Blood Pressure 117/78 O2 Sat by Pulse 97 Oximetry Procedures - Incision & Drainage Consent Obtained: verbal consent Indication: Abscess Site: face Size (cm): 4 I&D Cleaning Method: Alcohol Wipe, Betadine Sterile Field Used?: No Scalpel Used: #15 Ultrasound used: No Needle Aspiration Performed?: No Irrigation Performed?: No I&D Drainage Obtained: Pus, Blood Culture Obtained?: No Patient Tolerated Procedure: well, no complications Medical Decision Making - Medical Decision Making Was pt. sent in by a medical professional or institution (, PA, [employer], urgent care, hospital, or assisted...) When possible be specific @ -Sent from [facility] with facial abscess failed outpatient treatment Did you speak to anyone other than the patient for history (EMS, parent, family, police, friend...)? What history was obtained from this source @ -No Did you review nursing and triage notes (agree or disagree)? Why? @ -I reviewed and agree with nursing and triage notes Were old charts reviewed (outside hosp., previous admission, EMS record, old EKG, old radiological studies, urgent care reports/EKG's, assisted records)? Report findings @ -No old charts were reviewed Differential Diagnosis (chest pain, altered mental status, abdominal pain women, abdominal pain men, vaginal bleeding, weakness, fever, dyspnea, syncope, headache, dizziness, GI bleed, back pain, seizure, CVA, palpatations, mental health, musculoskeletal)? @ -Differential Musculoskeletal Muscular strain, contusion, ligament sprain, fracture, arthritis, septic arthritis, bursitis, cellulitis, muscle spasm, nerve compression, DVT, arterial occlusion, herpes zoster, electrolyte abnormality, tumor.... This is not meant to be in all inclusive list EKG interpreted by me (3pts min.). @ -None X-rays interpreted by me (1pt min.). @ -None done CT interpreted by me (1pt min.). @ -CT facial bones and soft tissue neck reveals left facial subcutaneous cystic/organizing fluid collection measuring up to 40 x 35 x 32 mm U/S interpreted by me (1pt. min.). @ -None done What testing was considered but not performed or refused? (CT, X-rays, U/S, labs)? Why? @ -None What meds were considered but not given or refused? Why? @ -None Did you discuss the management of the patient with other professionals (professionals i.e. , PA, [employer], lab, RT, psych nurse, social work therapist, laboratory director, teacher, financial compliance officer, employment case manager)? Give summary @ -No Was smoking cessation discussed for >3mins.? @ -No Was critical care preformed (if so, how long)? @ -No Were there social determinants of health that impacted care today? How? (Homelessness, low income, unemployed, alcoholism, drug addiction, transportation, low edu. Level, literacy, decrease access to med. care, prison, rehab)? @ -No Was there de-escalation of care discussed even if they declined (Discuss DNR or withdrawal of care, Hospice)? DNR status @ -No What co-morbidities impacted this encounter? (DM, HTN, Smoking, COPD, CAD, Cancer, CVA, ARF, Chemo, Hep., AIDS, mental health diagnosis, sleep apnea, morbid obesity)? @ -None Was patient admitted / discharged? Hospital course, mention meds given and route, prescriptions, significant lab abnormalities, going to OR and other pertinent info. @ -Admitted. 54-year-old male presenting for facial abscess x 1 week. Patient has been on amoxicillin x 3 days and abscess continues to grow in size. Patient is well-appearing, no acute distress. Patient is afebrile, heart rate 101 bpm. Patient was started on IV fluids and Toradol. Blood cultures were taken. Lab work remarkable for normal white blood cell count of 8, mildly elevated CRP at 2.4, normal lactic 1.7. CT facial bones and soft tissue neck reveals left facial subcutaneous cystic/organizing fluid collection measuring up to 40 x 35 x 32 mm. Incision and drainage was successfully performed. Patient can be safely discharged home with outpatient prescription for Bactrim and Keflex. Advised to discontinue amoxicillin. Strict return precautions discussed as well as close follow-up care. Case was discussed with my ED Dr. Lanza. Undiagnosed new problem with uncertain prognosis? @ -No Drug Therapy requiring intensive monitoring for toxicity (Heparin, Nitro, Insulin, Cardizem)? @ -No Were any procedures done? @ -Yes, incision and drainage successfully performed Diagnosis/symptom? @ -Abscess of face Acute, or Chronic, or Acute on Chronic? @ -Acute Uncomplicated (without systemic symptoms) or Complicated (systemic symptoms)? @ -Uncomplicated Side effects of treatment? @ -No Exacerbation, Progression, or Severe Exacerbation? @ -No Poses a threat to life or bodily function? How? (Chest pain, [place], [place], pneumonia, PE, COPD, DKA, ARF, appy, cholecystitis, CVA, Diverticulitis, Homicidal, Suicidal, threat to staff... and all critical care pts) @ -Not at this time - Lab Data Result diagrams: 10/12/24 18:03 10/12/24 18:03 Lab Results 10/12/24 10/12/24 10/12/24 Range/Units 18:03 18:03 18:03 WBC 8.14 (4.50-10.00) 10*3/uL RBC 5.04 (4.40-5.60) 10*6/uL Hgb 15.0 (13.0-17.0) g/dL Hct 44.3 (39.6-50.0) % MCV 87.9 (80.0-97.0) fL MCH 29.8 (27.0-32.0) pg MCHC 33.9 (32.0-37.0) g/dL Plt Count 241 (140-440) 10*3/uL MPV 10.4 (9.5-12.2) fL Immature Gran % (Auto) 0.2 % Neutrophils % 65.9 % Lymphocytes % 23.0 % Monocytes % 8.2 % Eosinophils % 2.0 % Basophils % 0.7 % Immature Gran # 0.02 (0.00-0.04) 10*3/uL Neutrophils # 5.36 (1.80-7.70) 10*3/uL Lymphocytes # 1.87 (0.90-5.00) 10*3/uL Monocytes # 0.67 (0.20-1.00) 10*3/uL Eosinophils # 0.16 (0.04-0.35) 10*3/uL Basophils # 0.06 (0.00-0.10) 10*3/uL Sodium 139 (137-145) mmol/L Potassium 4.0 (3.5-5.1) mmol/L Chloride 103 (98-107) mmol/L Carbon Dioxide 24 (22-30) mmol/L Anion Gap 12 mmol/L BUN 19 (9-20) mg/dL Creatinine 0.67 (0.66-1.25) mg/dL Est GFR (CKD-EPI)AfAm >90 (>60 ml/min/1.73 sqM) Est GFR (CKD-EPI)NonAf >90 (>60 ml/min/1.73 sqM) Glucose 143 H (74-99) mg/dL Plasma Lactic Acid Uri 1.7 (0.7-2.0) mmol/L Calcium 9.8 (8.4-10.2) mg/dL Total Bilirubin 0.5 (0.2-1.3) mg/dL AST 13 L (17-59) U/L ALT 15 (4-49) U/L Alkaline Phosphatase 53 (38-126) U/L C-Reactive Protein 2.4 H (<1.0) mg/dL Total Protein 7.3 (6.3-8.2) g/dL Albumin 4.1 (3.5-5.0) g/dL Disposition Clinical Impression: Abscess of face Disposition: HOME SELF-CARE Condition: Stable Instructions (If sedation given, give patient instructions): Abscess Incision and Drainage (ED) Additional Instructions: Take Bactrim and Keflex as prescribed. Apply warm compresses 3 times daily to the affected area. Please discontinue amoxicillin. Follow-up if abscess contin ues to grow in size or becomes more painful, as there is a possibility that it may need to be re-drained. Please return to the Emergency Department if symptoms worsen or any other concerns. Prescriptions: Sulfamethox-Tmp 800-160Mg [Bactrim Ds] 1 each PO Q12HR #20 tab Cephalexin [Keflex] 500 mg PO Q6HR #40 cap Is patient prescribed a controlled substance at d/c from ED?: No Referrals: Marck Yeager DO [Primary Care Provider] - 1-2 days Time of Disposition: 19:23
[2024-10-12] MEDS: KETOROLAC 15 MG/ML 1 ML VIAL IVP STA (17:53)
[2024-10-12] MEDS: SODIUM CHLORIDE 0.9% 1,000 ML IV STA (17:56)
[2024-10-12 18:17] LABS: Basophils # (A) 0.06 10*3/uL (0.00-0.10); Basophils % (A) 0.7 %; Eosinophils # (A) 0.16 10*3/uL (0.04-0.35); HCT 44.3 % (39.6-50.0); Lymphocytes # (A) 1.87 10*3/uL (0.90-5.00); MCH 29.8 pg (27.0-32.0); MCHC 33.9 g/dL (32.0-37.0); MCV 87.9 fL (80.0-97.0); Mean Platelet Volume 10.4 fL (9.5-12.2); Monocytes # (A) 0.67 10*3/uL (0.20-1.00); Monocytes % (A) 8.2 %; Neutrophils # (A) 5.36 10*3/uL (1.80-7.70); Neutrophils % (A) 65.9 %; Platelet Count 241 10*3/uL (140-440); RBC 5.04 10*6/uL (4.40-5.60); WBC 8.14 10*3/uL (4.50-10.00)
--- NOTE | 2024-10-12 18:28 | CT ---
EXAMINATION TYPE: CT soft tissue neck w con, CT facial bones w con DATE OF EXAM: 10/12/2024 5:45 PM COMPARISON: None. CLINICAL INDICATION: Male, 54 years old with history of facial abscess; [facility], Large abscess/swelling t o left side of cheek/neck. TECHNIQUE: Standard enhanced CT of the neck and facial bones. Axial sections with coronal and sagitt al reformats were obtained. Contrast used:100 mL of Isovue 300 with IV Contrast, (None if empty) Oral contrast used: (None if empty) CT DLP: 1007.7 mGycm, Automated exposure control for dose reduction was used. FINDINGS: Brain: Visualized portions are grossly unremarkable. Orbits: Unremarkable Sinuses: Grossly unremarkable. Spaces of the neck: Complex left facial bone fragments changes with suspected underlying soft tissue collection measuring 40 x 35 x 32 mm. No evidence for osseous erosion. Multiple prominent enlarged ly mph nodes on the left side which are likely reactive measuring up to 10 mm in short axis. There is s oft tissue edema in the left cheek with thickening of the skin present. Musculoskeletal: No acute osseous pathology. The maxilla facial structures are intact. Scattered pare nchymal disease with dental work present. Lymph nodes: Multiple prominent/borderline enlarged lymph nodes are seen along left neck which are l ikely reactive. Vascular structures: Visualized major arteries are patent without evidence of aneurysm. Thoracic Inlet/airway: Airway is patent. The lung apices are clear. Soft tissues/Thyroid: Thyroid and remainder of the soft tissues are unremarkable. Other: none. IMPRESSION: 1. Left facial subcutaneous cystic/organizing fluid collection measuring up to 40 x 35 x 32 mm which could be compatible with infection in the appropriate clinical setting. Prominent and enlarged in tr ansverse presentation with neck likely reactive. Short-term follow-up after medical treatment recomme nded to ensure resolution of lymphadenopathy. 2. No evidence for fracture. [facility], , 10/12/2024 6:26 PM
[2024-10-12 18:34] LABS: ALT 15 U/L (4-49); AST 13 U/L (17-59); African American GFR (CKD) >90 (>60 ml/min/1.73 sqM); Albumin 4.1 g/dL (3.5-5.0); Alkaline Phosphatase 53 U/L (38-126); Anion Gap 12 mmol/L; Blood Urea Nitrogen 19 mg/dL (9-20); C Reactive Protein 2.4 mg/dL (<1.0); Calcium 9.8 mg/dL (8.4-10.2); Carbon Dioxide 24 mmol/L (22-30); Chloride 103 mmol/L (98-107); Glucose 143 mg/dL (74-99); Non-African American GFR(CKD) >90 (>60 ml/min/1.73 sqM); Sodium 139 mmol/L (137-145); Total Bilirubin 0.5 mg/dL (0.2-1.3); Total Protein 7.3 g/dL (6.3-8.2)
[2024-10-12 19:36] VITALS: BP 112/77; PULSE 98
[2024-10-12] MEDS: SULFAMETHOX-TMP 800-160MG 1 EACH TAB PO STA (19:36)
[2024-10-12] MEDS: CEPHALEXIN 500 MG CAP PO STA (19:36)
== END 2024-10-12 21:57 | disposition home or self-care (01) ==
LOC: EC 16:02
DX: L02.01 Cutaneous abscess of face (principal); F17.200 Nicotine dependence, unspecified, uncomplicated; Z88.8 Allergy status to other drugs, medicaments and biological substances
CPT/HCPCS: 36415; 80053; 83605; 85025; 86140; 87040; 70487; 70491; 99284; 96374; 96361; 10060; J1885; Q9967